=== PATIENT | male | born 1935 | race Caucasian/White ===

== ENCOUNTER 2019-11-15 14:57 | Outpatient (CLI) | payer MEDICARE, SELFPAY ==
--- NOTE | ~2019-11-15 | XR_ITS ---
EXAMINATION: XR chest 2V DATE: 11/15/2019 15:17 INDICATION: Cough. TECHNIQUE: Frontal and lateral views of the chest were obtained. COMPARISON: Chest 2 views 12/12/2012 FINDINGS: The chest demonstrates clear lungs without pneumonia, pleural effusion, or pneumothorax. Th e heart size is normal. IMPRESSION: 1. No acute cardiopulmonary disease. Reviewed, dictated and finalized at location A.
== END 2019-11-15 14:58 | disposition home or self-care (01) ==
PROVIDERS: PCP Family Medicine; Visit Provider Family Medicine
DX: R05 Cough (principal); R63.4 Abnormal weight loss
CPT/HCPCS: 71046

== ENCOUNTER 2020-02-10 01:00 | Outpatient (CLI) | payer MEDICARE, SELFPAY ==
[2020-02-10 19:18] LABS: SARS-CoV-2 RNA PCR Negative
== END 2020-02-10 01:01 | disposition home or self-care (01) ==
LOC: ANHCOVIDDT 01:00
PROVIDERS: PCP Family Medicine; Visit Provider Internal Medicine Gastroenterology
DX: Z01.812 Encounter for preprocedural laboratory examination (principal); Z20.828 Contact with and (suspected) exposure to other viral communicable diseases
CPT/HCPCS: 87635; C9803; U0003

== ENCOUNTER 2020-02-13 01:58 | Day surgery (SDC) | payer MEDICARE, SELFPAY ==
--- NOTE | 2020-02-06 10:06 | PC.NURSE ---
1000 pt does not have phone. during interview got cut off. pt did receive date and time of procedure and covid test date and time and wrote down waiting room phone #. will have to finish interview on arrival.
[2020-02-13 11:35] VITALS: BP 137/79; PULSE 75; RESP 18; TEMP 36.8; O2SAT 97
--- NOTE | 2020-02-13 11:39 | WPDANESEPPF ---
Anes - Initial Pre Proc Eval Procedure: Operation Date: 02/13/20 12:30 Proposed Procedures p Colonoscopy - Jone Arias DO Date/Time: 02/13/20 11:39 Surgeon: Jone Arias DO Pre Op Diagnosis: Weight Loss/ IBS with Constipation Patient Data Age: 84 Gender: M Height: Weight: 83.3 kg Last Vital Signs Temp 98.2 F 02/13/20 11:35 Pulse 75 02/13/20 11:35 Resp 18 02/13/20 11:35 BP 137/79 02/13/20 11:35 Pulse Ox 97 02/13/20 11:35 Allergies Allergy/AdvReac Type Severity Reaction Status Date / Time cephalexin Allergy Unknown Rash Verified 02/13/20 11:34 Home Medications Medication Instructions Recorded Confirmed Type calcium polycarbophil 625 mg tablet 1,250 mg PO BID 04/28/19 02/06/20 History cholecalciferol (vitamin D3) 50 2,000 unit PO DAILY 04/28/19 02/06/20 History mcg (2,000 unit) tablet gzhrnidd-fqv-figcn acid 300 1 tablet PO DAILY 04/28/19 02/06/20 History mcg-lycopene 600 mcg-lutein 300 mcg tablet enalapril maleate 20 mg tablet 20 mg PO DAILY #90 tablet 10/06/19 02/06/20 Rx Patient hx anesthesia problems: none Family hx anesthesia problems: none PMFSH Past Medical History Medical History (Updated 02/13/20 @ 10:41 by Ronen Hemphill MD) Benign colon polyp BPH without obstruction/lower urinary tract symptoms Chronic cough Constipation Essential (primary) hypertension Mixed hyperlipidemia Nocturia Weight loss, non-intentional Family History Family History (Updated 10/18/18 @ 10:37 by DOCTOR UNKNOWN) Father Patient's father is , Onset Age: 75 Acute myocardial infarction Family history of primary malignant neoplasm of liver, Onset Age: 75 Grandparent Cerebrovascular accident, Onset Age: 80 Mother Family history of malignant neoplasm of breast, Onset Age: 81 Other Family history of arthritis Social History Social History Smoking status: Never smoker Alcohol intake: never Anes - Eval Final PreProcedure Day of Procedure 02/13/20 11:39 Patient weight: normal Heart: regular rate and rhythm Lungs: clear to auscultation Airway: Mallampati scale class II Neurological: alert and oriented Last oral intake: >/= 8 hours ASA classification: II Emergent: no Anesthetic plan: proceed Anesthesia type and monitoring: general GIVS and standard monitoring Informed Consent: The patient's anesthetic plan and its attendant risks and benefits were discussed with the patient/family/POA. Questions were solicited and answers provided to the satisfaction of the patient/family/POA.
[2020-02-13] MEDS: LACTATED RINGERS 1,000 ML 150 ML IV CONT (12:05)
--- NOTE | 2020-02-13 13:41 | PM.IMHP ---
H&P: HPI History of Present Illness Date/Time: 02/13/20 13:41 Chief complaint: Weight Loss/ IBS with Constipation Narrative: Reason for visit colonoscopy. This very pleasant gentleman seen in consultation request of the primary physician. Impression: Here is a gentleman with history of some mild constipation and weight loss. We evaluate for underlying inflammatory neoplastic disease. He does have a history adenomatous colon polyps. Weight loss undetermined etiology. HTN. BPH. Recommendation: Colonoscopy. History: For pleasant gentleman is here for screening and surveillance colonoscopy. He has a history of adenomatous colon polyps. He has lost approximately 25 lb the last several months. Nausea, vomiting, hematemesis, dysphagia, odynophagia, indigestion, abdominal pain, hematochezia, melena acholic stools night. He had some constipation several weeks ago , but for the last 5-6 weeks his bowel habits have been normal. The patient is here for colonoscopy. Physical examination: General: very pleasant patient in no acute distress. HEENT: Head was normocephalic sclerae is clear mouth without masses neck was supple. Heart: Rate rhythm regular without S3 or S4. Lungs: CTA. Abdomen: Soft with no guarding or rigidity. Bowel sounds were active. Neurologic: Cranial nerves 2 through 12 intact. No focal defects. No clonus. Musculoskeletal system: Revealed no joint tenderness or swelling no muscle atrophy. Extremities: Reveal no significant edema. Skin: Warm and dry with normal turgor. Mental status: intact. Patient is alert and oriented. Review of Systems Review of Systems: All systems reviewed & are unremarkable except as noted in HPI and below PMFSH Past Medical History Medical History (Updated 02/13/20 @ 13:41 by Jone Arias DO) Adenomatous colon polyp BPH without obstruction/lower urinary tract symptoms Essential (primary) hypertension Mixed hyperlipidemia Family History Family History (Updated 10/18/18 @ 10:37 by DOCTOR UNKNOWN) Father Patient's father is , Onset Age: 75 Acute myocardial infarction Family history of primary malignant neoplasm of liver, Onset Age: 75 Grandparent Cerebrovascular accident, Onset Age: 80 Mother Family history of malignant neoplasm of breast, Onset Age: 81 Other Family history of arthritis Social History Social History Smoking status: Never smoker Alcohol intake: never Meds Home Medications and Allergies Home Medications Medication Instructions Recorded Confirmed Type calcium polycarbophil 625 mg tablet 1,250 mg PO BID 04/28/19 02/06/20 History cholecalciferol (vitamin D3) 50 2,000 unit PO DAILY 04/28/19 02/06/20 History mcg (2,000 unit) tablet aueaiful-tji-srutz acid 300 1 tablet PO DAILY 04/28/19 02/06/20 History mcg-lycopene 600 mcg-lutein 300 mcg tablet enalapril maleate 20 mg tablet 20 mg PO DAILY #90 tablet 10/06/19 02/06/20 Rx Allergies Allergy/AdvReac Type Severity Reaction Status Date / Time cephalexin Allergy Unknown Rash Verified 02/13/20 11:34 Vital Signs Vital Signs - 24 hr 02/13/20 11:35 Temperature 36.8 C Pulse Rate 75 Respiratory Rate 18 Blood Pressure 137/79 Pulse Oximetry 97
[2020-02-13 14:06] VITALS: BP 110/67; PULSE 66; RESP 18; O2SAT 97
[2020-02-13 14:16] VITALS: BP 116/72; PULSE 64; RESP 18; O2SAT 96
[2020-02-13 14:26] VITALS: BP 127/73; PULSE 69; RESP 16; O2SAT 99
== END 2020-02-13 14:47 | disposition home or self-care (01) ==
PROVIDERS: PCP Family Medicine; Visit Provider Internal Medicine Gastroenterology
PROC: 0DJD8ZZ Inspection of Lower Intestinal Tract, Via Natural or Artificial Opening Endoscopic (ICD-10-PCS; CPT 45378; principal; 2020-02-13 12:30)
DX: Z12.11 Encounter for screening for malignant neoplasm of colon (principal); D12.2 Benign neoplasm of ascending colon; K57.30 Diverticulosis of large intestine without perforation or abscess without bleeding; K64.8 Other hemorrhoids; K59.00 Constipation, unspecified; R63.4 Abnormal weight loss; Z68.24 Body mass index [BMI] 24.0-24.9, adult; I10 Essential (primary) hypertension; E78.2 Mixed hyperlipidemia; N40.0 Benign prostatic hyperplasia without lower urinary tract symptoms
CPT/HCPCS: 45380; 88305; J2704; J7120

== ENCOUNTER 2020-02-28 15:56 | Outpatient (CLI) | payer MEDICARE, SELFPAY ==
--- NOTE | ~2020-02-28 | CT_ITS ---
EXAMINATION: CT chest abdomen pelvis w con DATE: 02/28/2020 16:44 INDICATION: Weight loss TECHNIQUE: Computed tomography (CT) of the chest, abdomen, and pelvis was performed with 100 cc Omnip aque 350 intravenous contrast. Automated exposure control and iterative reconstruction technique were employed. Exam dose: 896.17 mGy-cm total exam DLP. COMPARISON: 11/15/2019 PA and lateral chest FINDINGS: CHEST CT: Right gynecomastia. Resection of the right lobe of the thyroid gland. 7 mm hypoenhancing lesion at the anteromedial aspect of the lower left thyroid lobe/isthmic junction. No hilar or mediastinal mass lesion or lymphadenopathy. There are calcified right and left hilar and subcarinal lymph nodes. Normal heart size. Coronary artery calcifications. No pericardial or pleural effusion. There are calcified right lower lobe pulmonary nodules.. There is a 6.5 mm irregular opacity in the r ight apical area; pulmonary malignancy is not excluded. Consider PET/CT scan for further imaging. Sma ll sliding hiatal hernia. ABDOMEN/PELVIS CT: The liver is unremarkable other than a couple of subcentimeter cysts. The gallbladder is present. No bile duct dilatation. Multiple calcified splenic granulomas, consistent with old granulomatous disease. No pancreatic mass lesion. There are some pancreatic calcifications consistent with chronic pancreati tis. No pancreatic duct dilatation. Normal morphology of the adrenal glands. There is an indeterminate exophytic 11 mm lesion along the lower pole of the right kidney with attenu ation of 35 Hounsfield units, likely a proteinaceous or hemorrhagic cyst. There is a similar 12 mm exophytic lesion of the lower pole of the left kidney with attenuation of 31 Hounsfield units.. There is a 2.5 cm lower pole left renal cyst with attenuation of 7 Hounsfield uni ts. There is a nonobstructing 5 mm lower pole left renal calculus. There is prominent prostate enlargement, impressing the base of the urinary bladder. There is moderat e diffuse bladder wall thickening likely secondary to outlet obstruction associated with the prostate enlargement. Normal caliber of the abdominal aorta. No intraperitoneal or retroperitoneal or pelvic mass lesion or adenopathy or ascites. Diverticulosis of the left and right colon; no CT evidence of diverticulitis. No bowel obstruction, b owel wall thickening, pneumatosis or intraperitoneal free air. Prominent multilevel degenerative disc disease of the lumbar and lumbosacral spine. 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 No suspicious osteolytic or osteoblastic lesions are noted. 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 IMPRESSION: 6.5 mm irregular right apical soft tissue mass density; pulmonary malignancy cannot be e xcluded. Consider PET/CT imaging. Old granulomatous disease Bilateral renal lesions, including a couple of lesions with attenuation in the 30-35 Hounsfield unit range, probably cysts Chronic pancreatitis Prominent prostate enlargement Diverticulosis of the left and right colon . Reviewed, dictated and finalized at Location A. Reviewed, dictated and finalized at location A. IMPRESSION: 6.5 mm irregular right apical soft tissue mass density; pulmonary malignancy cannot be excluded. Consider PET/CT imaging. Old granulomatous disease Bilateral renal lesions, including a couple of lesions with attenuation in the 30-35 Hounsfield unit range, probably cysts Chronic pancreatitis Prominent prostate enlargement Diverticulosis of the left and right colon .
[2020-02-28 16:27] LABS: Estimated Glomerular Filt Rate > 60
== END 2020-02-28 15:57 | disposition home or self-care (01) ==
PROVIDERS: PCP Family Medicine; Visit Provider Internal Medicine Gastroenterology
DX: R63.4 Abnormal weight loss (principal); K57.30 Diverticulosis of large intestine without perforation or abscess without bleeding; N40.0 Benign prostatic hyperplasia without lower urinary tract symptoms; K86.1 Other chronic pancreatitis; N28.89 Other specified disorders of kidney and ureter; R91.8 Other nonspecific abnormal finding of lung field
CPT/HCPCS: 71260; 74177; Q9967

== ENCOUNTER 2020-08-27 13:48 | Outpatient (CLI) | payer MEDICARE, SELFPAY ==
--- NOTE | ~2020-08-27 | CT_ITS ---
EXAMINATION: CT diagnostic chest wo con DATE: 08/27/2020 14:11 INDICATION: Follow-up pulmonary nodule TECHNIQUE: Computed tomography (CT) of the chest was performed without intravenous contrast. The dose -length product was 115.26 mGy-cm. Automated exposure control and iterative reconstruction technique were employed. COMPARISON: CT dated 02/28/2020 FINDINGS: There is a stable irregular shaped 9 mm nodule at the right apex, measured on coronal recon structions. There are calcified granulomas of the mediastinum, hilum and right lower lobe. No signifi cant pleural or pericardial effusion. Heart size is normal. No thoracic lymphadenopathy. There are sm all nodules of the minor fissure and major fissure which are unchanged, likely benign, largest measur ing 4 mm. There is a small 2 mm left upper thoracic nodule, likely benign, unchanged. Mild thoracic s pondylosis. There is a focal osteoblastic lesion of T9. IMPRESSION: 1. Stable bilateral pulmonary nodules, largest at the right lung apex measuring 9 mm, likely benign. Follow-up low dose CT chest in 12 months recommended. 2: Focal osteoblastic lesion of T9. Correlate for history of malignancy including prostate cancer. Ca nnot exclude metastatic disease. Consider correlation with bone scan. Reviewed, dictated and finalized at location A. [facility] IMPRESSION: 1. Stable bilateral pulmonary nodules, largest at the right lung apex measuring 9 mm, likely benign. Follow-up low dose CT chest in 12 months recommended. 2: Focal osteoblastic lesion of T9. Correlate for history of malignancy includi ng prostate cancer. Cannot exclude metastatic disease. Consider correlation wit h bone scan.
== END 2020-08-27 13:49 | disposition home or self-care (01) ==
PROVIDERS: Family Provider Family Medicine; PCP Family Medicine; Visit Provider Internal Medicine Critical Care Medicine
DX: R91.1 Solitary pulmonary nodule (principal); R91.8 Other nonspecific abnormal finding of lung field
CPT/HCPCS: 71250

== ENCOUNTER 2020-12-17 13:32 | Inpatient (IN) | payer MEDICARE, SELFPAY ==
[2020-12-17] VITALS (7 sets, daily range): BP systolic 102–142; BP diastolic 66–75; PULSE 81–106; RESP 14–20; TEMP 36–37.3; O2SAT 98–100; BMI 25.4
--- NOTE | ~2020-12-17 | XR_ITS ---
EXAMINATION: XR abdomen NG/feed tube insert INDICATION: Nasogastric tube placement TECHNIQUE: Portable AP KUB-NG at 1622 hours COMPARISON: None available FINDINGS: The tip of the nasogastric tube is in the stomach and the proximal side port is at the gallito roesophageal junction. Tube can be safely advanced 3 to 4 cm. The lung bases are clear. The bowel gas pattern is nonspecific. IMPRESSION: 1. Tip of the nasogastric tube in the stomach with proximal side port near the gastroesophageal junct ion. Tube can be safely advanced 3 to 4 cm which is recommended. Reviewed, dictated and finalized at location B. IMPRESSION: 1. Tip of the nasogastric tube in the stomach with proximal side port near the gastroesophageal junction. Tube can be safely advanced 3 to 4 cm which is recom mended.
[2020-12-17 14:09] LABS: Basophils Percent Auto 0.4 % (0.2-1.2); Eosinophils Percent Auto 0.8 % (0-4.4); Hematocrit 21.4 % (42.0-52.0); Hemoglobin 7.1 g/dL (14.0-18.0); Immature Granulocyte Absolute 0.02 K/mm3 (0.00-0.031); Immature Granulocyte Percent A 0.4 % (0-0.5); Lymphocytes Absolute Auto 1.47 K/mm3 (0.9-3.2); Lymphocytes Percent Auto 27.9 % (18.3-44.2); Mean Corpuscular HGB Conc 33.2 g/dl (32-36); Mean Corpuscular Hemoglobin 34.5 pg (26-34); Mean Corpuscular Volume 103.9 fl (80-100); Mean Platelet Volume 10.8 fl (7.4-10.4); Monocytes Absolute Auto 0.4 K/mm3 (0.1-0.6); Monocytes Percent Auto 6.8 % (2.6-8.5); Neutrophils Absolute Auto 3.4 K/mm3 (1.3-6.7); Neutrophils Percent Auto 63.7 % (45.5-73.1); Platelet Count Result 176 k/mm3 (150-375); Red Blood Count 2.06 M/mm3 (4.6-6.20); Red Cell Distribution Width 12.9 % (11.5-14.5); White Blood Count 5.3 K/mm3 (4.5-10.0)
[2020-12-17 14:23] LABS: Alanine Aminotransferase 13 U/L (4-50); Albumin Level 3.4 g/dL (3.5-5.1); Alkaline Phosphatase 41 U/L (38-126); Anion Gap 9 mmol/L (8-16); Aspartate Amino Transferase 24 U/L (17-59); Bilirubin,Total 0.2 mg/dL (0.2-1.3); Blood Urea Nitrogen 25 mg/dL (9-20); Carbon Dioxide 20 mmol/L (22-30); Chloride 112 mmol/L (98-107); Estimated CRCL calculation 54 ml/min; Estimated Glomerular Filt Rate > 60; Glucose 136 mg/dL (75-110); Potassium 4.1 mmol/L (3.4-5.0); Sodium 141 mmol/L (137-145)
[2020-12-17 14:30] LABS: INR 1.2; Prothrombin Time 15.7 Seconds (11.1-14.7)
[2020-12-17 14:31] LABS: Partial Thromboplastin Time 25.9 SECONDS (22.3-36.8)
[2020-12-17] MEDS: SODIUM CHLORIDE 0.9% IV 1,000 ML 999 ML IV CONT (15:27)
--- NOTE | 2020-12-17 15:39 | ED.GIBLEED ---
HPI - GI Bleed General Chief complaint: GI Bleed Stated complaint: Possible GI bleed Time Seen by Provider: 12/17/20 15:07 History of Present Illness HPI Narrative: Patient is an 85-year-old male who presents to the ER with GI bleeding. Reports on 12/13/2020 he began having bloody stools. They have been regular and frequency. He had 2 bloody stools today. Reports they are burgundy in appearance but definitely contain blood. Denies his habitual use of NSAIDs. He is on no blood thinning medication. Reports feeling lightheaded today but no loss of consciousness. No exertional fatigue. Patient has history of diverticulosis but has no history of GI bleed. Related Data Home Medications Medication Instructions Recorded Confirmed calcium polycarbophil 625 mg tablet 1,250 mg PO BID 04/28/19 11/12/20 cholecalciferol (vitamin D3) 50 2,000 unit PO DAILY 04/28/19 11/12/20 mcg (2,000 unit) tablet vgynnryw-rzj-wjlru acid 300 1 tablet PO DAILY 04/28/19 11/12/20 mcg-lycopene 600 mcg-lutein 300 mcg tablet Allergies Allergy/AdvReac Type Severity Reaction Status Date / Time cephalexin Allergy Unknown Rash Verified 12/17/20 15:06 Review of Systems Review of Systems: All systems reviewed & are unremarkable except as noted in HPI and below Constitutional: Constitutional: Denies chills, Denies fever(s) and Denies weakness Cardiovascular: Cardiovascular: Denies chest pain and Denies radiating jaw, neck or arm pain Respiratory: Respiratory: Denies cough and Denies dyspnea Gastrointestinal: Gastrointestinal: Denies abdominal pain, Denies nausea and Denies vomiting Comments: Hematochezia Neurologic: Denies syncope, Denies focal weakness and Denies numbness [facility] Past Medical History Medical History (Updated 12/17/20 @ 16:55 by Gavin Boyle MD) Adenomatous colon polyp BMI 26.0-26.9,adult BPH without obstruction/lower urinary tract symptoms Colon polyp, hyperplastic Diarrhea Essential (primary) hypertension Mixed hyperlipidemia Pulmonary nodule less than 1 cm in diameter with low risk for malignant neoplasm Vertigo Surgical History Surgical History (Updated 12/17/20 @ 16:15 by Gavin Boyle MD) H/O colonoscopy Family History Family History Father Patient's father is , Onset Age: 75 Acute myocardial infarction Family history of primary malignant neoplasm of liver, Onset Age: 75 Grandparent Cerebrovascular accident, Onset Age: 80 Mother Family history of malignant neoplasm of breast, Onset Age: 81 Other Family history of arthritis Social History Social History Smoking status: Never smoker Alcohol intake: never Substance use: never Exam Narrative: Exam Narrative: GENERAL: Well-appearing, well-nourished, and in no acute distress. HEAD: Normocephalic, atraumatic. EYES: PERRL and EOMI. ENT: Mucous membranes moist. CHEST: Clear to auscultation. No respiratory distress. HEART: Regular rate and rhythm. Normal peripheral pulses. ABDOMEN: Soft, nontender, nondistended. Grossly bloody stool that is dark in appearance on CHULA. EXTREMITIES: Normal range of motion. No edema. SKIN: Warm, dry, pale, no rash. NEURO: Alert and oriented x3. PSYCH: Normal mood and affect. Course Course Emergency Course: Admit to hospitalist service. GI consulted. Patient underwent gastric lavage by nursing staff which resulted in no evidence of active bleeding. Patient will receive GoLYTELY to be bowel prep for tomorrow. He will also be placed on a Protonix drip. We will trend his H&H's as he may require transfusion. Vital Signs Vital signs: Vital Signs Temperature 99.1 F 12/17/20 13:47 Pulse Rate 106 H 12/17/20 13:47 Respiratory Rate 14 12/17/20 13:47 Blood Pressure 102/73 12/17/20 13:47 Pulse Oximetry 98 12/17/20 13:47 Temperatu
[2020-12-17] MEDS: PANTOPRAZOLE SODIUM IV 40 MG VIAL 80 MG IV PUSH (15:57)
[2020-12-17] MEDS: PEG (High)/E-LYTE SOLN 4,000 ML BTL 4000 ML PO (16:45)
--- NOTE | 2020-12-17 16:45 | PC.NURSE ---
NG tube lavaged with 250 ml saline with return of clear fluid. No blood seen from tube.
[2020-12-17 17:02] LABS: Hematocrit 22.9 % (42.0-52.0); Hemoglobin 7.4 g/dL (14.0-18.0)
--- NOTE | 2020-12-17 17:33 | PC.NURSE ---
Tolerating go-lytely well. No bowel movement since starting.
--- NOTE | 2020-12-17 18:08 | ADMGEN ---
This patient, Dada Kerns, was admitted to Medical Room 341-01. Patient/family oriented to hospital policies and general routines including ID bracelet, bed and alarms, visiting hours, pain management, procedures, bathroom and other care routines, personal items, smoking policy, room service/diet, and visiting hours. Information on how to activate the Rapid Response Team has been discussed. Patient/Family are encouraged to report perceived risks to care and to ask questions if they do not understand what they are told or what they should do.
--- NOTE | 2020-12-17 21:00 | PM.IMHP ---
H&P: HPI History of Present Illness Date/Time: 12/17/20 21:00 Chief Complaint: Rectal bleeding. Narrative: This is a very pleasant 85-year-old male with hypertension and benign prostatic hyperplasia presented to the emergency department earlier today from home for evaluation of rectal bleeding. He has taken FiberCon a probiotic daily for about 6 years in typically has pretty good bowel movements most days. Sometime late last week he began having issues with constipation and at times having to strain to have a bowel movement and on he noticed some bright red blood on the toilet tissue after wiping. Since that time he has been passing quite a bit of bright red blood in the stool and notes that it seems to be dark maroon in color when wiping now. He does have a history of colon polyps and hemorrhoids with his last colonoscopy being a couple of years ago. He has no pain with that and specifically denies abdominal pain and rectal pain. No nausea or vomiting. Some lightheadedness but no syncope or near syncope. He very rarely will take an aspirin if he has a headache. No NSAID use. No epigastric pain or GERD symptoms. Weight has remained stable. Review of Systems Review of Systems: Narrative: Twelve systems were reviewed with pertinent positives and negatives as per HPI. The patient donated blood for many years however the last couple of times that he went to donate over a decade ago he was told that he was too low on iron. He has not been on any iron supplementation however. He does get up to urinate quite frequently at nighttime and was told he has an enlarged prostate, was previously on Flomax, but stop taking it as he saw no benefit. Abdomen is protuberant on exam but he reports that his chronic any does not think that he is retaining urine. No chest pain or shortness of breath. Has maturing cataracts. Except as documented, all other systems were reviewed and are negative. [facility] Past Medical History Medical History (Updated 12/17/20 @ 21:36 by Letty Campbell PA-C) Adenomatous colon polyp Benign prostatic hyperplasia Colon polyp, hyperplastic Essential (primary) hypertension Mixed hyperlipidemia Pulmonary nodule less than 1 cm in diameter with low risk for malignant neoplasm Vertigo Surgical History Surgical History (Updated 12/17/20 @ 21:32 by Letty Campbell PA-C) History of colonoscopy with polypectomy History of excision of pilonidal cyst History of orthopedic surgery ORIF right wrist fracture. History of partial thyroidectomy Benign right thyroid nodule. Family History Family History Father Patient's father is , Onset Age: 75 Acute myocardial infarction Family history of primary malignant neoplasm of liver, Onset Age: 75 Grandparent Cerebrovascular accident, Onset Age: 80 Mother Family history of malignant neoplasm of breast, Onset Age: 81 Other Family history of arthritis Social History Social History (Updated 12/17/20 @ 21:33 by Letty Campbell PA-C) Social History: The patient lives alone in his own home in [place]. He has never and has no children. No animals at home. Retired accounting. lifelong nonsmoker. No alcohol or illicit substance abuse. He designates his friend, Vineet Chávez, as his surrogate decision maker. Status code Sexual Orientation (if Verbalized by the Patient): . Meds Home Medications and Allergies Home Medications Medication Instructions Recorded Confirmed Type cholecalciferol (vitamin D3) 50 2,000 unit PO DAILY 04/28/19 12/17/20 History mcg (2,000 unit) tablet izofdmdi-cug-yhqhz acid 300 1 tablet PO DAILY 04/28/19 12/17/20 History mcg-lycopene 600 mcg-lutein 300 mcg tablet enalapril maleate 20 mg tablet 20 mg PO DAILY #90 tablet 10/08/20 12/17/20 Rx cholestyramine (with sugar) 4 gram 4 g PO BID PRN #15 ea 12/17/2012/17
[2020-12-17 22:16] LABS: Hematocrit 23.4 % (42.0-52.0); Hemoglobin 7.4 g/dL (14.0-18.0)
[2020-12-18] VITALS (20 sets, daily range): BP systolic 93–136; BP diastolic 49–96; PULSE 62–83; RESP 12–24; TEMP 35.7–36.6; O2SAT 93–100
[2020-12-18 06:11] LABS: Mean Corpuscular HGB Conc 33.2 g/dl (32-36); Mean Corpuscular Hemoglobin 34.2 pg (26-34); Mean Corpuscular Volume 103.3 fl (80-100); Mean Platelet Volume 10.7 fl (7.4-10.4); Platelet Count Result 146 k/mm3 (150-375); Red Blood Count 1.84 M/mm3 (4.6-6.20); White Blood Count 5.1 K/mm3 (4.5-10.0)
[2020-12-18 06:17] LABS: Anion Gap 5 mmol/L (8-16); Blood Urea Nitrogen 15 mg/dL (9-20); Calcium 8.2 mg/dL (8.4-10.2); Carbon Dioxide 25 mmol/L (22-30); Chloride 112 mmol/L (98-107); Estimated CRCL calculation 60 ml/min; Estimated Glomerular Filt Rate > 60; Glucose 113 mg/dL (75-110); Magnesium 1.9 mg/dL (1.6-2.3); Potassium 3.8 mmol/L (3.4-5.0); Sodium 142 mmol/L (137-145)
[2020-12-18 06:29] LABS: Hemoglobin 6.3 g/dL (14.0-18.0)
[2020-12-18 07:19] LABS: Folic Acid > 20.0 ng/mL (2.76->20)
[2020-12-18] MEDS: SODIUM CHLORIDE 0.9% IV 250 ML 30 ML IV CONT (08:35)
--- NOTE | 2020-12-18 09:25 | PC.NURSE ---
To dialysis via stretcher.
--- NOTE | 2020-12-18 09:28 | WPDGICN ---
Assessment and Plan Assessment and plan (1) GI bleed: Code(s): K92.2 - Gastrointestinal hemorrhage, unspecified Status: Acute Assessment and Plan: Patient admitted with GI bleeding. The etiology is somewhat unclear. He is been found to have diverticular disease on previous colonoscopy raising this is a likely possibility. Description of dark melenic stools suggest possible upper GI blood loss. Plan is to check both colonoscopy an EGD monitor hemoglobin till is stable in transfuse to a stable hemoglobin if necessary. Will follow with you during this hospital stay. (2) History of colon polyps: Code(s): Z86.010 - Personal history of colonic polyps Status: Acute Assessment and Plan: Patient has had colon polyps in several prior colonoscopies. At 1 point they were tubular adenomas. Several of been hyperplastic polyps. Plan is to continue surveillance colonoscopies at 3-5 year intervals in the future. (3) Anemia: Code(s): D64.9 - Anemia, unspecified Status: Acute Assessment and Plan: Patient has significant decline in hemoglobin baseline hemoglobin 14 in 2013 most recent hemoglobin 7.1 at time of admission. This appears to be a blood loss anemia related to current GI bleeding over last 4-5 days. GI endoscopy anticipated will monitor until we are certain this is stable. (4) Pulmonary nodule less than 1 cm in diameter with low risk for malignant neoplasm: Code(s): R91.1 - Solitary pulmonary nodule; Z91.89 - Other specified personal risk factors, not elsewhere classified Status: Acute GI Consult Note Consult date/time: 12/18/20 09:28 HPI: Dada Kerns is a 85 year old male Seen in evaluation at the request of the emergency room. Patient reports that he began to have bloody stools since Thursday. Over the last 4-5 days has notice bright red blood per rectum that is gradual become dark and melenic. Because of that he presented to the emergency room last evening. He denies any syncope denies any lightheadedness. He denies any significant abdominal pain. Past medical history is significant for colon polyps. He is known to have hemorrhoids. Last colonoscopy was March of 2020. By Dr. Arias. Review of Systems Review of Systems: All systems reviewed & are unremarkable except as noted in HPI and below PMFSH Past Medical History Medical History (Updated 12/18/20 @ 09:32 by Jone Barcenas MD) Adenomatous colon polyp Benign prostatic hyperplasia Colon polyp, hyperplastic Essential (primary) hypertension Mixed hyperlipidemia Pulmonary nodule less than 1 cm in diameter with low risk for malignant neoplasm Vertigo Surgical History Surgical History (Updated 12/17/20 @ 21:32 by Letty Campbell PA-C) History of colonoscopy with polypectomy History of excision of pilonidal cyst History of orthopedic surgery ORIF right wrist fracture. History of partial thyroidectomy Benign right thyroid nodule. Family History Family History Father Patient's father is , Onset Age: 75 Acute myocardial infarction Family history of primary malignant neoplasm of liver, Onset Age: 75 Grandparent Cerebrovascular accident, Onset Age: 80 Mother Family history of malignant neoplasm of breast, Onset Age: 81 Other Family history of arthritis Social History Social History (Updated 12/17/20 @ 21:33 by Letty Campbell PA-C) Social History: The patient lives alone in his own home in [place]. He has never and has no children. No animals at home. Retired accounting. lifelong nonsmoker. No alcohol or illicit substance abuse. He designates his friend, Vineet Chávez, as his surrogate decision maker. Status code Sexual Orientation (if Verbalized by the Patient): . Meds Home Medications and Allergies Home Medications Medication Instruct
[2020-12-18] MEDS: LACTATED RINGERS 1,000 ML 150 ML IV CONT (09:44)
--- NOTE | 2020-12-18 09:57 | WPDANESEPPF ---
Anes - Initial Pre Proc Eval Procedure: Operation Date: 12/18/20 10:00 Proposed Procedures p Esophagogastroduodenoscopy & Colonoscopy - Jone Barcenas MD Date/Time: 12/18/20 09:57 Surgeon: Candice Clark PA-C Pre Op Diagnosis: GI bleed Patient Data Age: 85 Gender: M Height: 1.83 m Weight: 85.2 kg Last Vital Signs Temp 96.8 F L 12/18/20 09:35 Pulse 72 12/18/20 09:35 Resp 22 H 12/18/20 09:35 BP 124/67 12/18/20 09:35 Pulse Ox 97 12/18/20 09:35 Allergies Allergy/AdvReac Type Severity Reaction Status Date / Time cephalexin Allergy Unknown Rash Verified 12/18/20 09:46 Home Medications Medication Instructions Recorded Confirmed Type cholecalciferol (vitamin D3) 50 2,000 unit PO DAILY 04/28/19 12/17/20 History mcg (2,000 unit) tablet qfzfyuph-dwf-ssotq acid 300 1 tablet PO DAILY 04/28/19 12/17/20 History mcg-lycopene 600 mcg-lutein 300 mcg tablet enalapril maleate 20 mg tablet 20 mg PO DAILY #90 tablet 10/08/20 12/17/20 Rx cholestyramine (with sugar) 4 gram 4 g PO BID PRN #15 ea 12/17/20 12/17/20 Rx powder for susp in a packet Laboratory Tests 12/17/20 12/17/20 12/17/20 13:54 13:54 13:55 WBC 5.3 K/mm3 K/mm3 (4.5-10.0) RBC 2.06 M/mm3 L M/mm3 (4.6-6.20) Hgb 7.1 g/dL L g/dL (14.0-18.0) Hct 21.4 % L % (42.0-52.0) MCV 103.9 fl H fl (80-100) MCH 34.5 pg H pg (26-34) MCHC 33.2 g/dl g/dl (32-36) RDW 12.9 % % (11.5-14.5) Plt Count 176 k/mm3 k/mm3 (150-375) MPV 10.8 fl H fl (7.4-10.4) Immature Gran % (Auto) 0.4 % % (0-0.5) Neut % (Auto) 63.7 % % (45.5-73.1) Lymph % (Auto) 27.9 % % (18.3-44.2) [place] % (Auto) 6.8 % % (2.6-8.5) Eos % (Auto) 0.8 % % (0-4.4) Baso % (Auto) 0.4 % % (0.2-1.2) Lymph # (Auto) 1.47 K/mm3 K/mm3 (0.9-3.2) [place] # (Auto) 0.4 K/mm3 K/mm3 (0.1-0.6) Eos # (Auto) 0.0 K/mm3 K/mm3 (0-0.3) Baso # (Auto) 0.0 K/mm3 K/mm3 (0.0-0.1) Abs Immat Gran (auto) 0.02 K/mm3 K/mm3 (0.00-0.031) Absolute Neuts (auto) 3.4 K/mm3 K/mm3 (1.3-6.7) Absolute Nucleated RBC 0.0 K/mm3 K/mm3 (0.0-0.012) Nucleated RBC % 0.0 % % (0.0-0.2) PT 15.7 Seconds H Seconds (11.1-14.7) INR 1.2 APTT 25.9 SECONDS SECONDS (22.3-36.8) Sodium Potassium Chloride Carbon Dioxide Anion Gap BUN Creatinine Estim Creat Clear Calc Estimated GFR Glucose Calcium Magnesium Iron TIBC % Saturation Ferritin Total Bilirubin AST ALT Alkaline Phosphatase Total Protein Albumin Vitamin B12 Folate TSH (Reflex) Blood Type A Positive Antibody Screen Negative Crossmatch See Detail 12/17/20 12/17/20 12/17/20 13:55 16:51 16:51 WBC RBC Hgb 7.4 g/dL L g/dL 7.4 g/dL L g/dL (14.0-18.0) (14.0-18.0) Hct 22.9 % L % 23.4 % L % (42.0-52.0) (42.0-52.0) MCV MCH MCHC RDW Plt Count MPV Immature Gran % (Auto) Neut % (Auto) Lymph % (Auto) [place] % (Auto) Eos % (Auto) Baso % (Auto) Lymph # (Auto) [place] # (Auto) Eos # (Auto) Baso # (Auto) Abs Immat Gran (auto) Absolute Neuts (auto) Absolute Nucleated RBC Nucleated RBC % PT INR APTT Sodium 141 mmol/L mmol/L
[2020-12-18] MEDS: BENZOCAINE (*SP) 60 ML SPRAY CAN (HURRICAINE) 1 SPRAY MUCOUS MEM (10:11)
[2020-12-18 10:16] LABS: Iron 99 ug/dL (49-181)
[2020-12-18 10:28] LABS: Percent Iron Saturation 49 % (20-50)
--- NOTE | 2020-12-18 11:25 | PC.NURSE ---
Returned from GI Lab via stretcher. Voiding without difficulty.
[2020-12-18] MEDS: OPTI-GEN TAB 1 TABLET PO (11:30)
[2020-12-18] MEDS: FAMOTIDINE 20 MG TABLET PO ×2 (11:30→20:45)
[2020-12-18] MEDS: ENALAPRIL MALEATE 10 MG TABLET 20 MG PO (11:30)
[2020-12-18 13:17] LABS: Hematocrit 23.9 % (42.0-52.0); Hemoglobin 7.7 g/dL (14.0-18.0)
--- NOTE | 2020-12-18 15:10 | PM.IMPN ---
Progress Note: A&P Assessment and Plan (1) GI bleed: Code(s): K92.2 - Gastrointestinal hemorrhage, unspecified Status: Acute Assessment and Plan: Presented with bright red bleeding per rectum that transitioned to melanotic stool. he underwent EGD and colonoscopy today by Dr. Barcenas. colonoscopy demonstrated diverticulosis without evidence of bleeding and internal hemorrhoids, both of which could be the likely cause for his GI bleed. High-fiber diet recommended no further episodes of bleeding since hospitalization (2) Acute blood loss anemia: Code(s): D62 - Acute posthemorrhagic anemia Status: Acute Assessment and Plan: Suspected, though baseline is unknown as he has not had labs since 2012. Hemoglobin was low at presentation at 7.1 and declined down to 6.3. He was transfused 1 unit pRBC. H&H stable following transfusion. Iron stores are adequate, B12 and folate wnl. Trend H&H q6h to ensure remaining stable. Transfuse as needed with goal Hgb 7.0 or greater (3) Essential (primary) hypertension: Code(s): I10 - Essential (primary) hypertension Status: Chronic Assessment and Plan: Blood pressures were reviewed and they are well controlled. Continue enalapril and monitor. (4) Benign prostatic hyperplasia: Code(s): N40.0 - Benign prostatic hyperplasia without lower urinary tract symptoms Status: Acute Assessment and Plan: Patient has frequent urination and nocturia however did not think Flomax was any help to him. No evidence of urinary retention on bladder scan and he is voiding without difficulty. Encouraged to follow-up with his primary care provider or urology given ongoing symptoms. (5) Duodenitis: Code(s): K29.80 - Duodenitis without bleeding Status: Acute Assessment and Plan: Mild duodenitis noted on EGD, unlikely to be cause of bleeding Pepcid bid initated Subjective Date/time seen: 12/18/20 15:10 Interval history: date of service: 12/18/2020 Dada Kerns is 85-year-old male with a history of BPH, hypertension, hyperlipidemia, and known pulmonary nodule who is seen in follow-up for acute GI bleed. He underwent EGD and colonoscopy today and tolerated the procedure well. He denies any acute pain. Has not had any further episodes of bleeding since he has been here. Denies dizziness, lightheadedness,, shortness of breath. No chest pain or palpitations. No nausea, vomiting, fever, or chills. He has been up and ambulating independently. He ate a good lunch. He has no other concerns at this time. He has been urinating without difficulty. Review of Systems Review of Systems: All systems reviewed & are unremarkable except as noted in HPI and below Exam Narrative: Exam Narrative: Mr. Kerns is A well-nourished, well-appearing 85-year-old male who is sitting up in bed. he appears comfortable and is in NARD. Neuro: awake, alert and oriented x4, speech clear, no focal neuro deficits noted HEENMT: normocephalic, atraumatic, EOMI, sclerae anicteric, moist oral mucosa Neck: supple, no lymphadenopathy Respiratory: clear to auscultation bilaterally, nonlabored breathing Cardio: regular rate, regular rhythm with S1-S2 Abdomen: nondistended, normoactive bowel sounds, soft, nontender to palpation Extremities: no edema, erythema, or tenderness to palpation, DP pulses 2+ bilaterally Skin: no rashes or lesions, warm and dry Psych: appropriate mood and affect, judgment and insight intact Objective Data Vital Signs Vital Signs: Vital Signs - 24 hr 12/17/20 17:42 12/17/20 18:43 12/17/20 18:50 Temperature 96.8 F L Pulse Rate 81 92 89 Respiratory Rate 20 16 Blood Pressure 121/70 142/75 H Pulse Oximetry 99 12/17/20 20:00 12/17/20 20:38 12/18/20 00:00 Temperature 97.0 F L Pulse Rate 91 82 82 Respiratory Rate 16 Blood Pressure 136/68 Pulse Oximetry 98
[2020-12-18 18:50] LABS: Hematocrit 23.8 % (42.0-52.0); Hemoglobin 7.6 g/dL (14.0-18.0)
[2020-12-19] VITALS (9 sets, daily range): BP systolic 97–118; BP diastolic 52–78; PULSE 64–87; RESP 16–18; TEMP 35.9–36.8; O2SAT 96–100
[2020-12-19 01:21] LABS: Hematocrit 21.5 % (42.0-52.0)
[2020-12-19 01:32] LABS: Hemoglobin 6.8 g/dL (14.0-18.0)
[2020-12-19] MEDS: SODIUM CHLORIDE 0.9% IV 250 ML 30 ML IV CONT (03:15)
--- NOTE | 2020-12-19 07:41 | WPDANESPN ---
Anes - Prog Note Post-Op Date/Time: 12/19/20 07:41 Cardiovascular status: normal Respiratory status: normal Airway patency: baseline Mental status: baseline Post-Op hydration status: normal Vital Signs: Last Vital Signs Temp 36.3 C L 12/19/20 06:30 Pulse 76 12/19/20 06:30 Resp 16 12/19/20 06:30 BP 116/68 12/19/20 06:30 Pulse Ox 98 12/19/20 06:30 Pain Score (VAS): 1 I/O: Intake & Output 12/18/20 12/18/20 12/19/20 15:59 23:59 07:59 Intake Total 650 600 550 Output Total 25 1200 Balance 650 575 -650 Laboratory Tests 12/19/20 01:09 12/18/20 05:43 12/17/20 12/18/20 12/18/20 13:54 05:43 13:06 Hgb 7.7 L Hct 23.9 L Iron 99 TIBC 202 L % Saturation 49 Ferritin 206.00 TSH (Reflex) 2.230 Blood Type A Positive Antibody Screen Negative Crossmatch See Detail 12/18/20 12/19/20 18:32 01:09 Hgb 7.6 L 6.8 L* Hct 23.8 L 21.5 L Iron TIBC % Saturation Ferritin TSH (Reflex) Blood Type Antibody Screen Crossmatch Post-procedural complaints: none Patient Feedback: Patient satisfied with anesthetic care.
[2020-12-19 08:35] LABS: Hemoglobin 8.6 g/dL (14.0-18.0); Mean Corpuscular HGB Conc 33.1 g/dl (32-36); Mean Corpuscular Hemoglobin 32.7 pg (26-34); Mean Corpuscular Volume 98.9 fl (80-100); Platelet Count Result 158 k/mm3 (150-375); Red Blood Count 2.63 M/mm3 (4.6-6.20); Red Cell Distribution Width 16.9 % (11.5-14.5); White Blood Count 4.7 K/mm3 (4.5-10.0)
[2020-12-19] MEDS: FAMOTIDINE 20 MG TABLET PO ×2 (08:46→20:29)
[2020-12-19] MEDS: OPTI-GEN TAB 1 TABLET PO (08:46)
[2020-12-19] MEDS: ENALAPRIL MALEATE 10 MG TABLET 20 MG PO (08:46)
[2020-12-19 08:47] LABS: Anion Gap 3 mmol/L (8-16); Blood Urea Nitrogen 11 mg/dL (9-20); Calcium 8.5 mg/dL (8.4-10.2); Carbon Dioxide 27 mmol/L (22-30); Chloride 111 mmol/L (98-107); Estimated CRCL calculation 60 ml/min; Estimated Glomerular Filt Rate > 60; Glucose 123 mg/dL (75-110); Sodium 141 mmol/L (137-145)
--- NOTE | 2020-12-19 09:18 | WPDGIPROGNO ---
Progress Note: A&P Assessment and Plan (1) Diverticulosis: Code(s): K57.90 - Diverticulosis of intestine, part unspecified, without perforation or abscess without bleeding Status: Acute Assessment and Plan: Recent GI bleeding appears to be from diverticular disease. This appears to have abated at this time. Plan for high-fiber diet. Anticipate discharge today. Follow-up CBC after discharge to ensure hemoglobin remains stable. (2) Acute blood loss anemia: Code(s): D62 - Acute posthemorrhagic anemia Status: Acute Assessment and Plan: Patient required additional transfusion last night. Likely from equilibration. Plan for follow-up CBC after discharge in 1 week. (3) Duodenitis: Code(s): K29.80 - Duodenitis without bleeding Status: Acute Assessment and Plan: Mild duodenitis noted by endoscopy yesterday. Likely incidental. Would keep patient on Pepcid or Protonix for 2 weeks. (4) History of colon polyps: Code(s): Z86.010 - Personal history of colonic polyps Status: Acute Assessment and Plan: Patient has a distant history of colon polyps. no polyps identified by endoscopy yesterday. Given his advanced age would likely only do follow-up colonoscopy if symptoms develop. Subjective Date/time seen: 12/19/20 09:18 Patient comfortable this morning. No additional bleeding noted. He has tolerated diet without difficulty. He denies abdominal pain. He did receive additional blood transfusion last evening. Review of Systems Review of Systems: All systems reviewed & are unremarkable except as noted in HPI and below Exam Narrative: Exam Narrative: Physical exam reveals patient be alert. Vital signs stable. Lungs are clear. Heart without murmur. Abdomen bowel sounds present soft nontender with no organomegaly. Objective Data Vital Signs Vital Signs: Vital Signs - 24 hr 12/18/20 09:35 12/18/20 10:35 12/18/20 10:40 Temperature 96.8 F L 97.5 F L Pulse Rate 72 72 73 Respiratory Rate 22 H 18 20 Blood Pressure 124/67 117/59 L 116/52 L Pulse Oximetry 97 96 97 12/18/20 10:50 12/18/20 11:00 12/18/20 11:10 Temperature 97.9 F Pulse Rate 69 74 73 Respiratory Rate 18 20 21 H Blood Pressure 114/49 L 124/56 L 136/65 Pulse Oximetry 96 100 99 12/18/20 11:30 12/18/20 11:35 12/18/20 12:00 Temperature 96.5 F L Pulse Rate 64 68 Respiratory Rate 16 12 Blood Pressure 116/96 H Pulse Oximetry 100 99 12/18/20 12:35 12/18/20 14:00 12/18/20 16:00 Temperature 96.3 F L 96.4 F L Pulse Rate 82 78 62 Respiratory Rate 12 20 Blood Pressure 112/60 104/55 L Pulse Oximetry 100 98 12/18/20 22:00 12/19/20 03:15 12/19/20 03:30 Temperature 96.3 F L 96.8 F L 97.5 F L Pulse Rate 69 69 64 Respiratory Rate 20 16 16 Blood Pressure 93/53 L 101/53 L 115/67 Pulse Oximetry 93 100 100 12/19/20 04:30 12/19/20 05:30 12/19/20 06:00 Temperature 96.7 F L 96.8 F L 98.2 F Pulse Rate 68 70 80 Respiratory Rate 16 18 16 Blood Pressure 97/52 L 112/56 L 116/78 Pulse Oximetry 100 100 100 12/19/20 06:30 Temperature 97.4 F L Pulse Rate 76 Respiratory Rate 16 Blood Pressure 116/68 Pulse Oximetry 98 Intake/Output Intake/Output: Intake & Output 12/16/20 12/17/20 12/18/20 12/19/20 23:59 23:59 23:59 23:59 Intake Total 1000 1750 790 Output Total 650 1525 1200 Balance 350 225 -410 Meds/Results Medications: Active Medications Generic Name Dose Route Start Last Admin Trade Name Karen PRN Reason Stop Dose Admin Acetaminophen 650 mg 12/17/20 21:39 Acetaminophen 325 Mg Tablet PO Q6H PRN Mild Pain (1-3) or Fever Enalapril Maleate 20 mg 12/18/20 09:00 12/19/20 08:46 Enalapril Maleate 10 Mg Tablet PO 20 mg DAILY MERISSA Administration Famotidine 20 mg 12/18/20 10:45 12/19/20 08:46 Famotidine 20 Mg Tablet PO 20 mg Q12HR MERISSA Administration Sodium Chloride 250 mls @ 30 mls/hr 12/19/20 01:38
[2020-12-19 12:24] LABS: Hematocrit 27.5 % (42.0-52.0); Hemoglobin 8.9 g/dL (14.0-18.0)
--- NOTE | 2020-12-19 16:28 | PM.IMPN ---
Progress Note: A&P Assessment and Plan (1) GI bleed: Code(s): K92.2 - Gastrointestinal hemorrhage, unspecified Status: Acute Assessment and Plan: Presented with bright red bleeding per rectum that transitioned to melanotic stool. he underwent EGD and colonoscopy on 12/[address] Barcenas. Colonoscopy demonstrated diverticulosis without evidence of bleeding and internal hemorrhoids, both of which could be the likely cause for his GI bleed. High-fiber diet recommended no further episodes of bleeding since hospitalization (2) Acute blood loss anemia: Code(s): D62 - Acute posthemorrhagic anemia Status: Acute Assessment and Plan: Hemoglobin was low at presentation at 7.1 and declined down to 6.3. He was transfused 1 unit pRBC. hemoglobin declined again early this morning to 6.8 and he was transfused another unit. Hgb 8.6 following transfusion. Trend H&H q6h to ensure remaining stable. Transfuse as needed with goal Hgb 7.0 or greater (3) Essential (primary) hypertension: Code(s): I10 - Essential (primary) hypertension Status: Chronic Assessment and Plan: Blood pressures were reviewed and they are well controlled. last BP 116/68 Continue enalapril and monitor. (4) Benign prostatic hyperplasia: Code(s): N40.0 - Benign prostatic hyperplasia without lower urinary tract symptoms Status: Acute Assessment and Plan: Patient has frequent urination and nocturia however did not think Flomax was any help to him. No evidence of urinary retention on bladder scan and he is voiding without difficulty. Encouraged to follow-up with his primary care provider or urology given ongoing symptoms. (5) Duodenitis: Code(s): K29.80 - Duodenitis without bleeding Status: Acute Assessment and Plan: Mild duodenitis noted on EGD, unlikely to be cause of bleeding Pepcid BID initated Subjective Date/time seen: 12/19/20 16:28 Interval history: date of service: 12/19/2020 Dada Kerns is 85-year-old male with a history of BPH, hypertension, hyperlipidemia, and known pulmonary nodule who is seen in follow-up for acute GI bleed. he is feeling well today. He has no complaints at this time. Denies dizziness, lightheadedness, shortness of breath, or palpitations. No chest pain or palpitations. He had a loose stool today without any bleeding. No melena or hematochezia. He is urinating without difficulty. His appetite is good and he is enjoying the hospital food very much. Review of Systems Review of Systems: All systems reviewed & are unremarkable except as noted in HPI and below Exam Narrative: Exam Narrative: Mr. Kerns is a well-nourished, well-appearing 85-year-old male who is sitting in a chair by the bedside. he appears comfortable and is in NARD. Neuro: awake, alert and oriented x4, speech clear, no focal neuro deficits noted HEENMT: normocephalic, atraumatic, EOMI, sclerae anicteric, moist oral mucosa Neck: supple, no lymphadenopathy Respiratory: clear to auscultation bilaterally, nonlabored breathing Cardio: regular rate, regular rhythm with S1-S2 Abdomen: nondistended, normoactive bowel sounds, soft, nontender to palpation Extremities: no edema, erythema, or tenderness to palpation, DP pulses 2+ bilaterally Skin: no rashes or lesions, warm and dry Psych: appropriate mood and affect, judgment and insight intact Objective Data Vital Signs Vital Signs: Vital Signs - 24 hr 12/18/20 22:00 12/19/20 03:15 12/19/20 03:30 Temperature 96.3 F L 96.8 F L 97.5 F L Pulse Rate 69 69 64 Respiratory Rate 20 16 16 Blood Pressure 93/53 L 101/53 L 115/67 Pulse Oximetry 93 100 100 12/19/20 04:30 12/19/20 05:30 12/19/20 06:00 Temperature 96.7 F L 96.8 F L 98.2 F Pulse Rate 68 70 80 Respiratory Rate 16 18 16 Blood Pressure 97/52 L 112/56 L 116/78 Pulse Oximetry 100 100 100 12/19/20 06:30 12/19/20 10:54
[2020-12-19 19:38] LABS: Hematocrit 27.8 % (42.0-52.0); Hemoglobin 9.1 g/dL (14.0-18.0)
[2020-12-20 01:23] LABS: Hematocrit 23.9 % (42.0-52.0); Hemoglobin 7.8 g/dL (14.0-18.0)
[2020-12-20 05:31] VITALS: BP 106/58; PULSE 69; RESP 18; TEMP 35.6; O2SAT 99
[2020-12-20 06:29] LABS: Hematocrit 25.6 % (42.0-52.0); Hemoglobin 8.2 g/dL (14.0-18.0)
[2020-12-20] MEDS: ENALAPRIL MALEATE 10 MG TABLET 20 MG PO (08:07)
[2020-12-20] MEDS: OPTI-GEN TAB 1 TABLET PO (08:08)
[2020-12-20] MEDS: FAMOTIDINE 20 MG TABLET PO (08:08)
--- NOTE | 2020-12-20 10:39 | PM.DS ---
DS: Admitting Diagnosis Admitting Diagnosis Admitting Diagnosis: GI bleed DS: Discharge Diagnosis Discharge Diagnosis (1) GI bleed: Code(s): K92.2 - Gastrointestinal hemorrhage, unspecified Status: Acute Assessment and Plan: Date of Admission 12/17/20 Date of Discharge 12/20/20 Mr. Kerns is a pleasant 85yo M with history of HTN who presented to the ED for evaluation of blood in stool. He described he had some bright red blood per rectum that transitioned to melanotic stool, onset a few days prior to admission. He was evaluated by GI and underwent EGD/colonoscopy by Dr Barcenas on 12/18/20 which demonstrated Diverticulosis without evidence of bleeding and internal hemorrhoids, both of which could be the likely cause for GI bleeding. He was also found to have some mild duodenitis on EGD and was started on PPI. High-fiber diet is recommended. He had no further episodes of bleeding since his hospitalization. He had Hgb 6.3 on 12/18/2020 and received 1 unit packed RBC. Hgb trended up in the high sevens, then declined again to 6.8 on 12/19 at which time he received another 1 unit packed RBC. Subsequently his Hgb remained stable and was 8.2 on day of discharge. He was ambulating without dizziness or lightheadedness. He is hemodynamically stable for discharge on 12/20/2020 with instructions to follow-up with PCP and monitor for further bleeding. (2) Acute blood loss anemia: Code(s): D62 - Acute posthemorrhagic anemia Status: Acute Assessment and Plan: Hgb 6.3 on 12/18/20 - received 1 unit packed RBC transfusion. Hgb 6.8 on 12/19/20 - received 1 unit packed RBC transfusion. Hgb low but stable 8.2 day of discharge. Related to GI bleeding as above. Repeat CBC in 1 week and follow up with PCP. (3) Essential (primary) hypertension: Code(s): I10 - Essential (primary) hypertension Status: Chronic Assessment and Plan: Blood pressure stable maintained on his home HEAVEN-inhibitor . (4) Benign prostatic hyperplasia: Code(s): N40.0 - Benign prostatic hyperplasia without lower urinary tract symptoms Status: Acute Assessment and Plan: Patient has frequent urination and nocturia however did not think Flomax was any help to him. No evidence of urinary retention on bladder scan and he is voiding without difficulty. Encouraged to follow-up with his primary care provider or urology given ongoing symptoms. (5) Duodenitis: Code(s): K29.80 - Duodenitis without bleeding Status: Acute Assessment and Plan: Mild duodenitis noted on EGD, unlikely to be cause of bleeding Pepcid BID initiated DS: Summary Hospital Course Hospital Course: See above Time Spent with Patient Time attestation: Total time spent providing and/or coordinating discharge services: 35 minutes Exam Narrative: Exam Narrative: Mr. Kerns is a well-nourished, well-appearing 85-year-old male who is sitting in a chair by the bedside. he appears comfortable and is in NARD. Neuro: awake, alert and oriented x4, speech clear, no focal neuro deficits noted HEENMT: normocephalic, atraumatic, EOMI, sclerae anicteric, moist oral mucosa Neck: supple, no lymphadenopathy Respiratory: clear to auscultation bilaterally, nonlabored breathing Cardio: regular rate, regular rhythm with S1-S2 Abdomen: nondistended, normoactive bowel sounds, soft, nontender to palpation Extremities: no edema, erythema, or tenderness to palpation, DP pulses 2+ bilaterally Skin: no rashes or lesions, warm and dry Psych: appropriate mood and affect, judgment and insight intact DS: Data Data Completed and Pending Labs on day of discharge: Labs from last 24 hours 12/20/20 12/20/20 12/19/20 05:35 01:10 18:39 Hgb
--- NOTE | 2020-12-20 10:42 | WPDGIPROGNO ---
Progress Note: A&P Assessment and Plan (1) Duodenitis: Code(s): K29.80 - Duodenitis without bleeding Status: Acute Assessment and Plan: duodenitis by EGD. This is nonspecific. But he may benefit from a brief course of Pepcid. Hopefully discharge today. He is tolerating diet with no difficulty (2) Diverticulosis: Code(s): K57.90 - Diverticulosis of intestine, part unspecified, without perforation or abscess without bleeding Status: Acute Assessment and Plan: sigmoid diverticulosis identified by colonoscopy. I suspect this was the source of recent bleeding. Bleeding has stopped no actively at the time of endoscopy. Would recommend conservative therapy. High-fiber diet. Perhaps follow-up CBC 1 week after discharge. (3) History of colon polyps: Code(s): Z86.010 - Personal history of colonic polyps Status: Acute Assessment and Plan: Patient has a distant history of colon polyps. We may wish to consider follow-up colonoscopy in 5 years. However because of his advanced age would defer this to primary care service at that time period (4) Anemia: Code(s): D64.9 - Anemia, unspecified Status: Acute Assessment and Plan: patient with anemia likely from GI bleeding. Hemoglobin 8.2 today appears stable. He did receive transfusion earlier in hospital course. Anticipate discharge. Follow-up CBC in 1 week advised. Subjective Date/time seen: 12/20/20 10:42 Patient feels good this morning. No additional bleeding. Tolerating diet. Denies abdominal pain. Review of Systems Review of Systems: All systems reviewed & are unremarkable except as noted in HPI and below Exam Narrative: Exam Narrative: Physical exam reveals Vital Signs to be stable. HEENT exam reveals no icterus. Lungs are clear. Heart without murmur. Abdomen soft and nontender Objective Data Vital Signs Vital Signs: Vital Signs - 24 hr 12/19/20 10:54 12/19/20 14:00 12/19/20 20:08 Temperature 97.1 F L 97.2 F L Pulse Rate 87 76 Respiratory Rate 16 18 Blood Pressure 118/67 109/66 Pulse Oximetry 96 99 96 12/20/20 05:31 Temperature 96.1 F L Pulse Rate 69 Respiratory Rate 18 Blood Pressure 106/58 L Pulse Oximetry 99 Intake/Output Intake/Output: Intake & Output 12/17/20 12/18/20 12/19/20 07/01/21 23:59 23:59 23:59 23:59 Intake Total 1000 1750 1570 680 Output Total 650 1525 1200 900 Balance 350 225 370 -220 Meds/Results Medications: Active Medications Generic Name Dose Route Start Last Admin Trade Name Frevenus PRN Reason Stop Dose Admin Acetaminophen 650 mg 12/17/20 21:39 Acetaminophen 325 Mg Tablet PO Q6H PRN Mild Pain (1-3) or Fever Enalapril Maleate 20 mg 12/18/20 09:00 12/20/20 08:07 Enalapril Maleate 10 Mg Tablet PO 20 mg DAILY MERISSA Administration Famotidine 20 mg 12/18/20 10:45 12/20/20 08:08 Famotidine 20 Mg Tablet PO 20 mg Q12HR MERISSA Administration Multivitamins/Minerals 1 tablet 12/18/20 09:00 12/20/20 08:08 Opti-Gen Tab PO 1 tablet DAILY MERISSA Administration Ondansetron HCl 4 mg 12/17/20 16:35 Ondansetron Inj 4 Mg/2 Ml Vial IV PUSH Q4H PRN Nausea Radiology Results: ITS Impressions Abdomen X-Ray 12/17/20 16:24 IMPRESSION: 1. Tip of the nasogastric tube in the stomach with proximal side port near the gastroesophageal junction. Tube can be safely advanced 3 to 4 cm which is recommended. Labs Labs: Laboratory Results - last 24 hr 12/19/20 12/19/20 12/20/20 12:16 18:39 01:10 Hgb 8.9 L 9.1 L 7.8 L Hct 27.5 L 27.8 L 23.9 L 12/20/20 05:35 Hgb 8.2 L Hct 25.6 L
== END 2020-12-20 13:08 | disposition home or self-care (01) | DRG 393 ==
LOC: ANHED 16:55 → ANH3MED 17:26
PROVIDERS: Internal Medicine Gastroenterology; Physician Assistant; Admitting Provider Emergency Medicine; Emergency Provider Emergency Medicine; PCP Family Medicine; Visit Provider Physician Assistant
PROC: 0DJ08ZZ Inspection of Upper Intestinal Tract, Via Natural or Artificial Opening Endoscopic (ICD-10-PCS; CPT 43235; principal; 2020-12-18 10:00)
DX: K64.8 Other hemorrhoids (principal); K57.31 Diverticulosis of large intestine without perforation or abscess with bleeding; D62 Acute posthemorrhagic anemia; K29.80 Duodenitis without bleeding; I10 Essential (primary) hypertension; E78.2 Mixed hyperlipidemia; R91.1 Solitary pulmonary nodule; D53.9 Nutritional anemia, unspecified; N40.1 Benign prostatic hyperplasia with lower urinary tract symptoms; R35.0 Frequency of micturition; R35.1 Nocturia; Z86.010 Personal history of colon polyps
CPT/HCPCS: 36415; 36430; 80048; 80053; 82607; 82728; 82746; 83540; 83550; 83735; 84443; 85014; 85018; 85025; 85027; 85610; 85730; 86850; 86900; 86901; 86920; 87081; 96361; 96365; 96366; 99285; A9270; C9113; G0378; J2704; J7030; J7050; J7060; J7120; P9016

== ENCOUNTER 2021-02-27 11:04 | Outpatient (CLI) | payer MEDICARE, SELFPAY ==
--- NOTE | ~2021-02-27 | CT_ITS ---
EXAMINATION: CT diagnostic chest wo con DATE: 02/27/2021 11:28 INDICATION: Solitary pulmonary nodule TECHNIQUE: Computed tomography (CT) of the chest was performed without intravenous contrast. The dose -length product (DLP) was 106.29 mGy-cm. Automated exposure control and iterative reconstruction tech DEXMAque were employed. COMPARISON: 08/27/2020, 02/28/2020 FINDINGS: A 9 mm nodule of the right lung apex is stable. There are multiple smaller, stable pulmonar y nodules. No new pulmonary nodule is identified. The lungs are free of acute opacities. There is no pleural effusion or pneumothorax. Calcified pulmonary nodules are consistent with old granulomatous d isease. 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 There is bilateral gynecomastia, right greater than left. T he heart size is normal. There is calcified coronary artery atherosclerosis. No pathologically enlarg ed thoracic lymph nodes are identified. The ascending aorta is dilated. There is severe upper thoraci c spondylosis. IMPRESSION: 1. Stable pulmonary nodules measuring up to 9 mm in the right lung apex probably benign. Follow-up CT in 6-12 months is recommended. Reviewed, dictated and finalized at location B. IMPRESSION: 1. Stable pulmonary nodules measuring up to 9 mm in the right lung apex probabl y benign. Follow-up CT in 6-12 months is recommended.
== END 2021-02-27 11:05 | disposition home or self-care (01) ==
LOC: ANHIMG 11:08
PROVIDERS: PCP Family Medicine; Visit Provider Internal Medicine Critical Care Medicine
DX: R91.8 Other nonspecific abnormal finding of lung field (principal); Z91.89 Other specified personal risk factors, not elsewhere classified
CPT/HCPCS: 71250

== ENCOUNTER 2022-02-27 12:48 | Outpatient (CLI) | payer MEDICARE, SELFPAY ==
--- NOTE | ~2022-02-27 | CT_ITS ---
EXAMINATION:CT diagnostic chest wo con DATE: 02/27/2022 13:07 INDICATION: Solitary pulmonary nodule. TECHNIQUE: Computed tomography (CT) of the chest was performed without intravenous contrast. Automate d exposure control and iterative reconstruction technique were employed. The dose-length product (DLP ) was 114.52 mGy-cm. COMPARISON: Chest CT 02/27/2021, 02/28/20 FINDINGS: There is a 10 mm nodule in right upper lobe, stable from 02/28/20. Calcified bilateral lung n odules and calcified hilar lymph nodes are consistent with old granulomatous disease. No pleural effu iqra. The heart size is normal. No pericardial effusion. There is bilateral gynecomastia. Calcificati ons in the spleen are consistent with old granulomatous disease. There is severe thoracic and lumbar spondylosis. IMPRESSION: 1. Chronic lung nodule, likely benign. Reviewed, dictated and finalized at location A.
== END 2022-02-27 12:49 | disposition home or self-care (01) ==
LOC: ANHIMG 12:51
PROVIDERS: PCP Family Medicine; Visit Provider Physician Assistant
DX: R91.1 Solitary pulmonary nodule (principal)
CPT/HCPCS: 71250

== ENCOUNTER 2023-06-02 15:00 | Outpatient (CLI) | payer MEDICARE, SELFPAY ==
[2023-06-02 16:13] LABS: Basophils Percent Auto 0.6 % (0.2-1.2); Eosinophils Absolute Auto 0.1 K/mm3 (0-0.3); Hematocrit 35.8 % (42.0-52.0); Hemoglobin 11.4 g/dL (14.0-18.0); Immature Granulocyte Absolute 0.03 K/mm3 (0.00-0.031); Immature Granulocyte Percent A 0.5 % (0-0.5); Lymphocytes Absolute Auto 0.71 K/mm3 (0.9-3.2); Lymphocytes Percent Auto 11.3 % (18.3-44.2); Mean Corpuscular HGB Conc 31.8 g/dl (32-36); Mean Corpuscular Volume 103.8 fl (80-100); Mean Platelet Volume 12.2 fl (7.4-10.4); Monocytes Absolute Auto 0.7 K/mm3 (0.1-0.6); Neutrophils Absolute Auto 4.8 K/mm3 (1.3-6.7); Neutrophils Percent Auto 75.6 % (45.5-73.1); Platelet Count Result 174 k/mm3 (150-375); Red Blood Count 3.45 M/mm3 (4.6-6.20); White Blood Count 6.3 K/mm3 (4.5-10.0)
[2023-06-02 16:27] LABS: Alanine Aminotransferase 107 U/L (6-50); Albumin Level 3.4 g/dL (3.5-5.1); Alkaline Phosphatase 395 U/L (38-126); Amylase 74 U/L (30-110); Aspartate Amino Transferase 106 U/L (17-59); Bilirubin Direct 6.4 mg/dL (0-0.3); Bilirubin,Total 12.1 mg/dL (0.2-1.3); Lipase 134 U/L (23-300)
[2023-06-02 16:31] LABS: Appearance Urine Clear (Clear); Bacteria Urine None Seen /hpf; Bilirubin Urine 3+ (Negative); Blood Urine Negative (Negative); Color Urine Dark Yellow (Yellow); Glucose Urine UA Negative (Negative); Ketones Urine Negative (Negative); Leukocyte Esterase Ur Trace LEU/UL (NEGATIVE); Nitrate Urine Negative (Negative); Non Pathogenic Casts 0-2; Protein Urine Trace mg/dL (Negative); RBC Urine 0-2 /hpf (0-2); Squamous Epithelial Cell Urine None seen /hpf (Few); Urobilinogen Urine 0.2 mg/dL (<2.0); WBC Urine 0-5 /hpf (0-3); pH Urine 5.5 (5.0-9.0)
[2023-06-02 16:45] LABS: Add Urine Microscopic? YES
== END 2023-06-02 15:01 | disposition home or self-care (01) ==
LOC: ANHLAB 15:08
PROVIDERS: PCP Family Medicine; Visit Provider Family Medicine
DX: D64.9 Anemia, unspecified (principal); R10.9 Unspecified abdominal pain
CPT/HCPCS: 36415; 80076; 81001; 82150; 83690; 85025; 87086

== ENCOUNTER 2023-06-03 10:58 | Outpatient (CLI) | payer MEDICARE, SELFPAY ==
[2023-06-03 13:20] LABS: Hepatitis B Surface Antigen Negative (Negative)
[2023-06-03 13:27] LABS: HAV RESULT Negative (Negative); Hepatitis B Core IgM Result Negative (Negative)
[2023-06-03 13:38] LABS: Hepatitis C Virus Antibody Negative (Negative)
== END 2023-06-03 10:59 | disposition home or self-care (01) ==
LOC: ANHGOSHLAB 10:59
PROVIDERS: Visit Provider Family Medicine
DX: B17.9 Acute viral hepatitis, unspecified (principal)
CPT/HCPCS: 36415; 80074

== ENCOUNTER → 2023-06-03 11:08 | Outpatient (CLI) | payer MEDICARE, SELFPAY ==
--- NOTE | ~2023-06-03 | US_ITS ---
Abdominal Sonogram: Real-time sonographic imaging of the abdomen was performed. Clinical History: Liver inflammation Findings: The liver appears somewhat heterogeneous, with several scattered mildly hyperechoic region s. Masses are not excluded versus heterogeneous parenchyma. Liver measures 18.5 cm in length. Main po rtal vein demonstrates normal direction of flow. The spleen is normal in size without evidence of foc al lesion. The gallbladder is well distended, and and contains gallbladder sludge and stones. No gal lbladder wall thickening. The common bile duct measures 14 mm. The visualized pancreas, aorta, and I VC are unremarkable. The right kidney measures 11.2 cm in length and the left kidney measures 12.5 c m. There is no hydronephrosis or renal calculus. Left renal cyst noted. Impression: Heterogeneous liver, with suggestion of multiple subtle hyperechoic masses. Metastatic disease or mul tiple hemangiomas are considerations, or possibly heterogeneous parenchyma. Pre and postcontrast hepa tic MR recommended for most sensitive evaluation for hepatic lesions. Cholelithiasis and gallbladder sludge. Reviewed, dictated and finalized at location M. UME DRAPER Impression: Heterogeneous liver, with suggestion of multiple subtle hyperechoic masses. Met astatic disease or multiple hemangiomas are considerations, or possibly heterog eneous parenchyma. Pre and postcontrast hepatic MR recommended for most sensiti ve evaluation for hepatic lesions. Cholelithiasis and gallbladder sludge.
== END ==
PROVIDERS: PCP Family Medicine; Visit Provider Family Medicine
DX: K80.20 Calculus of gallbladder without cholecystitis without obstruction (principal); K75.9 Inflammatory liver disease, unspecified
CPT/HCPCS: 76700

== ENCOUNTER 2023-06-13 16:22 | Inpatient (IN) | payer MEDICARE, MEDICAID, SELFPAY ==
[2023-06-13] VITALS (19 sets, daily range): BP systolic 86–112; BP diastolic 49–74; PULSE 81–97; RESP 13–25; TEMP 36.9; O2SAT 92–100; BMI 25.1
--- NOTE | ~2023-06-13 | MR_ITS ---
EXAMINATION: MR MRCP wo/w con/w 3D wo ind DATE: 06/14/2023 12:12 INDICATION: Jaundice. Abnormal liver ultrasound. TECHNIQUE: Magnetic resonance imaging (MRI) of the abdomen was performed without and with 16 mL Multi Eren intravenous contrast. Sequences included coronal T2-weighted FS FSE, coronal T2-weighted FSE, a xial T1-weighted LAVA, coronal FS FIESTA, axial dual-echo T1-weighted SPGR, coronal lava-FLEX, sagitt al T2-weighted FSE, axial T2-weighted FSE, and axial DWI. Thick-slab T2-weighted FSE images were obta ined for magnetic resonance cholangiopancreatography (MRCP). Maximum intensity projection 3-D reconst ructions of the volumetric data were created by the technologist. Postcontrast sequences included cor onal LAVA-flex and time course of axial T1-weighted LAVA. COMPARISON: Abdomen ultrasound 06/03/2023, CT abdomen and pelvis 02/28/2020, chest CT 02/27/2022 FINDINGS: ABDOMEN MRI: There are ill-defined nodules in the lungs. There are small pleural effusions. There are greater than 10 masses in the liver measuring up to 4.3 cm. There is moderate intrahepatic biliary d uct dilatation. The gallbladder is distended and contains gallstones. Gallbladder wall thickening is noted. There is a 7.1 mm mass involving the tail of the pancreas and left adrenal gland. There is per iportal lymphadenopathy. There is a stricture of the common bile duct in the head of the pancreas. Th e spleen, right adrenal gland, and right kidney are normal. There is a 3.6 cm cyst in left kidney. Th ere is a moderate volume of ascites. There is peritoneal nodularity, consistent with carcinomatosis. There is severe lumbar spondylosis. There are areas of heterogeneous bone marrow. ABDOMEN MRCP: The common duct is dilated to 9 mm. There is a structure in the head of the pancreas. IMPRESSION: 1. 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 2. Liver masses, lung nodules, moderate volume of ascites with peritoneal carcinomatosis, and peripor tapan lymphadenopathy, consistent with metastatic disease. Ultrasound-guided paracentesis is recommende d. 3. Heterogeneous bone marrow signal intensity suspicious for metastatic disease. Specificity is decre ased by the degenerative changes of bone. Correlate with CT abdomen and pelvis with contrast. 4. Ill-defined lung nodules, likely metastatic disease. Chest CT with contrast is recommended. 5. Intrahepatic and extrahepatic biliary duct dilatation with distended gallbladder suspicious for ma lignant stricture in the head of the pancreas. 6. Cholelithiasis. Gallbladder wall thickening may be secondary to interstitial edema or acute or chr onic cholecystitis. Reviewed, dictated and finalized at location E. Y TINTER MAKER IMPRESSION: 1. Mass involving the pancreas and left adrenal gland, likely primary pancreati c adenocarcinoma. 2. Liver masses, lung nodules, moderate volume of ascites with peritoneal carci nomatosis, and periportal lymphadenopathy, consistent with metastatic disease. Ultrasound-guided paracentesis is recommended. 3. Heterogeneous bone marrow signal intensity suspicious for metastatic disease . Specificity is decreased by the degenerative changes of bone. Correlate with CT abdomen and pelvis with contrast. 4. Ill-defined lung nodules, likely metastatic disease. Chest CT with contrast is recommended. 5. Intrahepatic and extrahepatic biliary duct dilatation with distended gallbla dder suspicious for malignant stricture in the head of the pancreas. 6. Cholelithiasis. Gallbladder wall thickening may be secondary to interstitial edema or acute or chronic cholecystitis.
--- NOTE | ~2023-06-13 | US_ITS ---
EXAMINATION: US biopsy liver DATE: 06/16/2023 16:13 INDICATION: Metastatic disease with multiple hepatic masses TECHNIQUE: The procedure including the risks and benefits was discussed with the patient. Risks discu ssed included bleeding and infection. The patient understood the risks and agreed to proceed. The sk in overlying the right hepatic lobe was prepped and draped in usual sterile fashion. Anesthetic was administered with 1% lidocaine subcutaneously. An 18 gauge core biopsy needle was advanced under con tinuous ultrasound observation to the lesion of interest. 2 core biopsy specimens were obtained. The needle was removed and the entry site was cleaned and dressed. Post procedure ultrasound demonstra tom no hemorrhage. FINDINGS: Ultrasound images demonstrate biopsy needles advanced into a 3 cm hyperechoic mass with irr egular margins in the right hepatic lobe. IMPRESSION: 1. Successful Ultrasound-guided biopsy of a 3 cm hypoechoic mass in the right hepatic lobe. Reviewed, dictated and finalized at location A. MOTIVE PARTS CLERK IMPRESSION: 1. Successful Ultrasound-guided biopsy of a 3 cm hypoechoic mass in the right h epatic lobe.
--- NOTE | ~2023-06-13 | US_ITS ---
EXAMINATION: US paracentesis abd w/image DATE: 06/16/2023 16:11 INDICATION: Ascites. TECHNIQUE: The procedure and its risks and benefits were discussed with the patient. Potential risks discussed included bleeding and infection. The skin was prepped and draped in sterile fashion. 1% lid ocaine was used for local anesthesia. Under ultrasound guidance, a 5 Fr catheter with trochar was adv anced into the ascites in the right abdomen. Fluid was aspirated into vacuum bottles. A second skin s ite overlying the liver was prepped and draped in sterile fashion. 1% lidocaine was used for local an esthesia. Under ultrasound guidance a second 5F or catheter with trochar was advanced into the ascite s and aspirated into vacuum bottles. The catheter was removed and sterile dressings were applied. The re were no immediate complications. FINDINGS: Ultrasound images demonstrate ascites and the catheter within the fluid. IMPRESSION: 1. Successful ultrasound-guided paracentesis yielding 600 mL of dark yellowish-brown fluid. Reviewed, dictated and finalized at location A. INSPECTOR IMPRESSION: 1. Successful ultrasound-guided paracentesis yielding 600 mL of dark yellowish -brown fluid.
--- NOTE | ~2023-06-13 | XR_ITS ---
XR chest 1V portable DATE: 06/13/2023 22:04 INDICATION: Cough TECHNIQUE: . Portable AP chest on 06/13/2023 at 2201 hours COMPARISON: 02/27/2022 CT chest FINDINGS: Normal heart size. No hilar or mediastinal enlargement. There is mild infiltrate or atelectasis at both lung bases, primarily involving the lower lobes prima rily. Slight if any right pleural effusion. No pulmonary vascular congestion or pneumothorax. IMPRESSION: Mild bilateral lower lung infiltrate and/atelectasis Reviewed, dictated and finalized at location A. S COUNTER SPECIALIST
--- NOTE | 2023-06-13 21:36 | ED.GENADULT ---
HPI - General Adult General Chief complaint: Unspecified Stated complaint: jaundice, I have liver problems , cough Time Seen by Provider: 06/13/23 21:31 History of Present Illness HPI narrative: Patient is an 87-year-old male who presents to the emergency department this evening complaining cough and symptoms an upper respiratory infection. Patient states that he does have liver issues. Chart review revealed that patient recently saw his primary care physician and blood work revealed transaminitis with hyperbilirubinemia consistent with hepatitis. Patient is being followed for this by his primary care physician and Recently had an abdominal ultrasound which revealed gallstones biliary sludge, no gallbladder inflammation. Ultrasound also revealed multiple liver lesions and patient is pending an MRI for further evaluation. Patient was supposed to have this MRI this past , however, he missed his appointment because he said he felt so sick he could even make it to the appointment. Patient denies any additional symptoms at this time including chest pain, shortness of breath, nausea, vomiting, abdominal pain, dysuria, hematuria, constipation, diarrhea, melena, hematochezia, fevers or chills. Patient also denies any headaches, dizziness, lightheadedness, blurry visions, focal weakness, numbness and or tingling. There are no other modifying, alleviating, or precipitating factors at this time. Related Data Home Medications Medication Instructions Recorded Confirmed cholecalciferol (vitamin D3) 50 2,000 unit PO DAILY 04/28/19 06/02/23 mcg (2,000 unit) tablet ghbtmasd-nc-olnya 300 mcg-K 60 1 tablet PO DAILY 04/28/19 06/02/23 mcg-lycop 600 mcg-lutein 300 mcg tablet (Centrum Silver Men) acetaminophen PO PRN 01/10/21 06/02/23 calcium polycarbophil 625 mg 1,250 mg PO DAILY 04/05/21 06/02/23 tablet (FiberCon) polyethylene glycol 3350 17 17 g PO DAILY 11/13/21 06/02/23 gram/dose oral powder (Miralax) magnesium 250 mg tablet 250 mg PO DAILY 03/31/22 06/02/23 Allergies Allergy/AdvReac Type Severity Reaction Status Date / Time cephalexin Allergy Unknown Rash Verified 06/13/23 21:38 Review of Systems Review of Systems: Patient denies any chest pain, shortness of breath, nausea, vomiting, abdominal pain, dysuria, hematuria, constipation, diarrhea, melena, hematochezia, fevers or chills. Patient also denies any headaches, dizziness, lightheadedness, blurry visions, focal weakness, numbness and or tingling. There are no other modifying, alleviating, or precipitating factors at this time. [facility] Past Medical History Medical History Abdominal pain Acute blood loss anemia Acute hepatitis (~05/15/23) bilirubin 12.1, AST 106, ALT 107, alkaline phosphatase 395 with urine with 3+ bilirubin 06/02/2023. Complete abdominal ultrasound revealed no inflammation of the gallbladder with gallstones and sludge in the gallbladder noted. Multiple subtle lesions of the liver with need for MRI for further evaluation. Adenomatous colon polyp At moderate risk for fall (~11/20/22) BMI 27.0-27.9,adult Chronic cough Colon polyp, hyperplastic Constipation Cough Diarrhea Diverticulosis Duodenitis Encounter for prostate cancer screening PSA 2.91 on 11/11/2022. Essential (primary) hypertension GI bleed (12/17/20) acute lower GI bleeding 12/17/2020 with EGD and colonoscopy with no active bleeding with diverticulosis and duodenitis. 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 Total cholesterol 170, triglycerides 90, HDL 56, LDL 96 on 11/11/2022. Overweight (BMI 25.0-29.9) Pulmonary nodule less than 1 cm in diameter with low risk for malignant neoplasm 9 mm nodule right apex on CT 02/27/2021, unchanged with recheck in 1 year Vertigo Surgical History Surgical History (Revi
[2023-06-13 21:51] LABS: Basophils Percent Auto 0.5 % (0.2-1.2); Eosinophils Absolute Auto 0.1 K/mm3 (0-0.3); Eosinophils Percent Auto 0.9 % (0-4.4); Hematocrit 31.4 % (42.0-52.0); Immature Granulocyte Absolute 0.06 K/mm3 (0.00-0.031); Immature Granulocyte Percent A 0.7 % (0-0.5); Lymphocytes Absolute Auto 0.62 K/mm3 (0.9-3.2); Lymphocytes Percent Auto 7.2 % (18.3-44.2); Mean Corpuscular Hemoglobin 32.9 pg (26-34); Mean Platelet Volume 11.9 fl (7.4-10.4); Monocytes Percent Auto 11.7 % (2.6-8.5); Neutrophils Absolute Auto 6.8 K/mm3 (1.3-6.7); Platelet Count Result 262 k/mm3 (150-375); Red Blood Count 3.34 M/mm3 (4.6-6.20); Red Cell Distribution Width 18.9 % (11.5-14.5); White Blood Count 8.7 K/mm3 (4.5-10.0)
[2023-06-13 22:02] LABS: INR 1.6; Prothrombin Time 19.6 Seconds (11.1-14.7)
[2023-06-13 22:13] LABS: Alanine Aminotransferase 112 U/L (6-50); Albumin Level 3.1 g/dL (3.5-5.1); Alkaline Phosphatase 710 U/L (38-126); Anion Gap 10 mmol/L (8-16); Aspartate Amino Transferase 180 U/L (17-59); Blood Urea Nitrogen 39 mg/dL (9-20); Calcium 8.8 mg/dL (8.4-10.2); Carbon Dioxide 19 mmol/L (22-30); Chloride 108 mmol/L (98-107); Estimated CRCL calculation 46 ml/min; Estimated Glomerular Filt Rate > 60; Glucose 105 mg/dL (65-110); Potassium 3.8 mmol/L (3.4-5.0); Sodium 137 mmol/L (137-145)
[2023-06-13] MEDS: SODIUM CHLORIDE 0.9% IV 1,000 ML 75 ML IV CONT (22:19)
--- NOTE | 2023-06-13 22:20 | PC.NURSE ---
Per EDP Dr. Mchugh sodium chloride at 1000mls had a rate change of 75mls/ hour. THis RN used closed loop communication to confirm rate change with EDP Dr. Mchugh.
[2023-06-13 22:27] LABS: Influenza A QL RT-PCR Negative (Negative); Influenza B QL RT-PCR Negative (Negative); RSV RNA, RT-PCR Positive (Negative); SARS-CoV-2 RNA PCR Negative (Negative)
[2023-06-14] VITALS (10 sets, daily range): BP systolic 98–126; BP diastolic 55–62; PULSE 71–97; RESP 16–18; TEMP 36.4–36.8; O2SAT 93–95
[2023-06-14 00:28] LABS: Lactic Acid Reflex 1.2 mmol/L (0.7-2.0)
--- NOTE | 2023-06-14 00:44 | ADMGEN ---
This patient, Dada Kerns, was admitted to Medical Room 346-01. Patient/family oriented to hospital policies and general routines including ID bracelet, bed and alarms, visiting hours, pain management, procedures, bathroom and other care routines, personal items, smoking policy, room service/diet, and visiting hours. Information on how to activate the Rapid Response Team has been discussed. Patient/Family are encouraged to report perceived risks to care and to ask questions if they do not understand what they are told or what they should do.
--- NOTE | 2023-06-14 01:04 | PC.NURSE ---
Patient verbalizing refusal for life saving efforts in chance of decline.
[2023-06-14 06:08] LABS: Appearance Urine Cloudy (Clear); Bacteria Urine None Seen /hpf; Bilirubin Urine 3+ (Negative); Blood Urine Negative (Negative); Color Urine Dark Yellow (Yellow); Glucose Urine UA Negative (Negative); Hyaline Casts Urine Present /lpf; Ketones Urine Negative (Negative); Leukocyte Esterase Ur 1+ LEU/UL (Negative); Need Manual Microscopic Reviewed; Nitrate Urine Positive (Negative); Non Pathogenic Casts 0-2; Protein Urine 1+ mg/dL (Negative); Specific Grav Ur 1.022 (1.001-1.035); Squamous Epithelial Cell Urine None seen /hpf (Few); Urobilinogen Urine 0.2 mg/dL (<2.0); WBC Urine 0-5 /hpf; pH Urine 5.5 (5.0-9.0)
[2023-06-14 06:34] LABS: Add Urine Microscopic? YES
[2023-06-14 10:18] LABS: Bilirubin Direct 17.5 mg/dL (0-0.3)
--- NOTE | 2023-06-14 11:25 | PC.NURSE ---
[facility]
--- NOTE | 2023-06-14 17:04 | PM.IMHP ---
H&P: HPI History of Present Illness Date/Time: 06/14/23 17:04 Chief Complaint: Patient came to the ER for evaluation with the cough, weakness and worsening jaundice Narrative: He is a very pleasant 87 years old male who is complaining of dark urine and jaundice for the last week and a half. He went to the PCP and was told he has liver issues. He is diagnosed with hepatitis and has abdominal ultrasound which revealed gallstones and biliary sludge. Ultrasound also showed multiple liver lesions. Patient was suppose to have his MRI couple days ago but missed the appointment because he was very weak and tired. He came to the ER for evaluation for worsening symptoms. Workup was done which confirmed hyperbilirubinemia as well as RSV infection causing his cough and cold. He was also point to be dehydrated and started on IV fluids. He is being admitted for medical management, symptomatic care and GI evaluation for further workup for his jaundice and liver issues. Review of Systems Review of Systems: 14 systems were reviewed with pertinent positives and negatives per HPI. Except as documented in the HPI/progress notes, all other systems were reviewed and are negative. All systems reviewed & are unremarkable except as noted in HPI and below PMFSH Past Medical History Medical History Abdominal pain Acute blood loss anemia Acute hepatitis (~05/15/23) bilirubin 12.1, AST 106, ALT 107, alkaline phosphatase 395 with urine with 3+ bilirubin 06/02/2023. Complete abdominal ultrasound revealed no inflammation of the gallbladder with gallstones and sludge in the gallbladder noted. Multiple subtle lesions of the liver with need for MRI for further evaluation. Adenomatous colon polyp At moderate risk for fall (~11/20/22) BMI 27.0-27.9,adult Chronic cough Colon polyp, hyperplastic Constipation Cough Diarrhea Diverticulosis Duodenitis Encounter for prostate cancer screening PSA 2.91 on 11/11/2022. Essential (primary) hypertension GI bleed (12/17/20) acute lower GI bleeding 12/17/2020 with EGD and colonoscopy with no active bleeding with diverticulosis and duodenitis. 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 Total cholesterol 170, triglycerides 90, HDL 56, LDL 96 on 11/11/2022. Overweight (BMI 25.0-29.9) Pulmonary nodule less than 1 cm in diameter with low risk for malignant neoplasm 9 mm nodule right apex on CT 02/27/2021, unchanged with recheck in 1 year Vertigo Surgical History Surgical History History of colonoscopy with polypectomy History of excision of pilonidal cyst History of orthopedic surgery ORIF right wrist fracture. History of partial thyroidectomy Benign right thyroid nodule. Family History Family History Father Patient's father is , Onset Age: 75 Acute myocardial infarction Family history of primary malignant neoplasm of liver, Onset Age: 75 Grandparent Cerebrovascular accident, Onset Age: 80 Mother Family history of malignant neoplasm of breast, Onset Age: 81 Other Family history of arthritis Social History Social History Social History: The patient lives alone in his own home in [place]. He has never and has no children. No animals at home. Retired accounting. lifelong nonsmoker. No alcohol or illicit substance abuse. He designates his friend, Vineet Chávez, as his surrogate decision maker. Status code Smoking status: Never smoker Alcohol intake: never Substance use: never Substance use type: does not use Do You Feel Safe in your Home?: Yes Lack of Transportation: No Lack of Food: Never True Current Housing: I Have Housing
[2023-06-14] MEDS: SODIUM CHLORIDE 0.45% 1,000 ML 100 ML IV CONT (17:48)
[2023-06-14] MEDS: BENZONATATE 100 MG CAPSULE 200 MG PO (20:21)
[2023-06-14] MEDS: LORATADINE 10 MG TABLET PO (23:53)
[2023-06-15] VITALS (10 sets, daily range): BP systolic 94–109; BP diastolic 47–68; PULSE 59–86; RESP 14–18; TEMP 36.1–36.8; O2SAT 94–96
[2023-06-15] MEDS: SODIUM CHLORIDE 0.45% 1,000 ML 100 ML IV CONT ×2 (03:40→17:38)
[2023-06-15 05:41] LABS: Basophils Percent Auto 0.6 % (0.2-1.2); Eosinophils Absolute Auto 0.2 K/mm3 (0-0.3); Eosinophils Percent Auto 2.2 % (0-4.4); Hematocrit 26.5 % (42.0-52.0); Hemoglobin 9.5 g/dL (14.0-18.0); Immature Granulocyte Absolute 0.12 K/mm3 (0.00-0.031); Immature Granulocyte Percent A 1.8 % (0-0.5); Lymphocytes Absolute Auto 0.62 K/mm3 (0.9-3.2); Lymphocytes Percent Auto 9.2 % (18.3-44.2); Mean Corpuscular HGB Conc 35.8 g/dl (32-36); Mean Corpuscular Hemoglobin 32.9 pg (26-34); Mean Corpuscular Volume 91.7 fl (80-100); Mean Platelet Volume 11.3 fl (7.4-10.4); Monocytes Absolute Auto 0.8 K/mm3 (0.1-0.6); Monocytes Percent Auto 11.1 % (2.6-8.5); Neutrophils Absolute Auto 5.1 K/mm3 (1.3-6.7); Neutrophils Percent Auto 75.1 % (45.5-73.1); Platelet Count Result 213 k/mm3 (150-375); Red Blood Count 2.89 M/mm3 (4.6-6.20); Red Cell Distribution Width 19.4 % (11.5-14.5); White Blood Count 6.7 K/mm3 (4.5-10.0)
[2023-06-15 06:03] LABS: Alanine Aminotransferase 110 U/L (6-50); Albumin Level 2.3 g/dL (3.5-5.1); Alkaline Phosphatase 828 U/L (38-126); Anion Gap 5 mmol/L (8-16); Aspartate Amino Transferase 167 U/L (17-59); Bilirubin,Total 24.9 mg/dL (0.2-1.3); Blood Urea Nitrogen 25 mg/dL (9-20); Calcium 8.1 mg/dL (8.4-10.2); Carbon Dioxide 20 mmol/L (22-30); Chloride 112 mmol/L (98-107); Estimated CRCL calculation 63 ml/min; Estimated Glomerular Filt Rate > 60; Glucose 97 mg/dL (65-110); Magnesium 2.1 mg/dL (1.6-2.3); Phosphorus 2.9 mg/dL (2.5-4.5); Potassium 3.3 mmol/L (3.4-5.0); Sodium 137 mmol/L (137-145)
[2023-06-15] MEDS: CHOLECALCIFEROL 1,000 UNITS TABLET 2000 UNITS PO (09:14)
[2023-06-15] MEDS: BENZONATATE 100 MG CAPSULE 200 MG PO ×2 (09:14→17:55)
[2023-06-15] MEDS: OPTI-GEN TAB 1 TABLET PO (09:14)
[2023-06-15] MEDS: calcium polycarbophiL 625 MG TABLET 1250 MG PO (09:15)
[2023-06-15] MEDS: POTASSIUM CHLORIDE 20 MEQ ER TABLET 40 MEQ PO (09:15)
[2023-06-15] MEDS: MAGNESIUM 13.5 MG TABLET (250 MG MAG GLUCONATE) PO (09:15)
--- NOTE | 2023-06-15 13:26 | WPDGICN ---
Assessment and Plan Assessment and plan (1) Acute hepatitis: Onset Date: ~05/15/23 Code(s): B17.9 - Acute viral hepatitis, unspecified Status: Acute Assessment and Plan: wonder if could be related to RSV but probably could have underlying liver disease pending mri- need to assess if significant liver lesions will get AFP level trend liver enzymes (2) RSV (acute bronchiolitis due to respiratory syncytial virus): Code(s): J21.0 - Acute bronchiolitis due to respiratory syncytial virus Status: Acute Assessment and Plan: supportive care newly diagnosed (3) Cough: Code(s): R05.9 - Cough, unspecified Status: Acute (4) Abnormal liver ultrasound: Code(s): R93.2 - Abnormal findings on diagnostic imaging of liver and biliary tract Status: Acute Assessment and Plan: MRI liver pending hepatitis panel negative GI Consult Note Consult date/time: 06/15/23 13:26 Reason for consult: rsv, hepatitis HPI: Dada Kerns is a 87 year old male who has been coughing for 2-3 weeks, also noted dark urine and jaundice for almost 2 weeks, he went to see PCP, bili 12, hepatitis panel negative and he had RSV +. He is here with more fatigue and malaise. Ultrasound showed gallstones and biliary sludge, also heterogeneous liver, with suggestion of multiple subtle hyperechoic masses. Metastatic disease or multiple hemangiomas are considerations, or possibly heterogeneous parenchyma- he did not follow-up for MRI. Finally came to ER and admitted, noted worsening bili 28. He denies liver disease, no alcohol use. Review of Systems Constitutional: Constitutional: Reports fatigue and Reports lethargy Eyes: Eyes: Denies blurry vision ENT: Comments: cough Cardiovascular: Cardiovascular: Denies chest pain Respiratory: Respiratory: Reports cough Gastrointestinal: Gastrointestinal: Denies abdominal pain Genitourinary: Comments: dark urine Musculoskeletal: Musculoskeletal: Denies neck pain Integumentary/Breasts: Comments: jaundice Neurologic: Denies Abnormal speech present Psychiatric: Psychiatric: Denies confusion PMFSH Past Medical History Medical History (Updated 06/15/23 @ 13:31 by Ambrosio Rivera MD) Abdominal pain Abnormal liver ultrasound Acute blood loss anemia Acute hepatitis (~05/15/23) bilirubin 12.1, AST 106, ALT 107, alkaline phosphatase 395 with urine with 3+ bilirubin 06/02/2023. Complete abdominal ultrasound revealed no inflammation of the gallbladder with gallstones and sludge in the gallbladder noted. Multiple subtle lesions of the liver with need for MRI for further evaluation. Adenomatous colon polyp At moderate risk for fall (~11/20/22) BMI 27.0-27.9,adult Chronic cough Colon polyp, hyperplastic Constipation Cough Diarrhea Diverticulosis Duodenitis Encounter for prostate cancer screening PSA 2.91 on 11/11/2022. Essential (primary) hypertension GI bleed (12/17/20) acute lower GI bleeding 12/17/2020 with EGD and colonoscopy with no active bleeding with diverticulosis and duodenitis. 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 Total cholesterol 170, triglycerides 90, HDL 56, LDL 96 on 11/11/2022. Overweight (BMI 25.0-29.9) Pulmonary nodule less than 1 cm in diameter with low risk for malignant neoplasm 9 mm nodule right apex on CT 02/27/2021, unchanged with recheck in 1 year Vertigo Surgical History Surgical History History of colonoscopy with polypectomy History of excision of pilonidal cyst History of orthopedic surgery ORIF right wrist fracture. History of partial thyroidectomy Benign right thyroid nodule. Family History Family History Father Patient's father is , Ons
--- NOTE | 2023-06-15 17:43 | PM.IMPN ---
Progress Note: A&P Assessment and Plan (1) Hepatitis: Code(s): K75.9 - Inflammatory liver disease, unspecified Status: Acute (2) Cough: Code(s): R05.9 - Cough, unspecified Status: Acute (3) Acute hepatitis: Onset Date: ~05/15/23 Code(s): B17.9 - Acute viral hepatitis, unspecified Status: Acute (4) Diarrhea: Qualifiers: Diarrhea type: unspecified type Qualified Code(s): R19.7 - Diarrhea, unspecified Code(s): R19.7 - Diarrhea, unspecified Status: Acute (5) Abdominal pain: Code(s): R10.9 - Unspecified abdominal pain Status: Acute (6) Irritable bowel syndrome with constipation: Code(s): K58.1 - Irritable bowel syndrome with constipation Status: Acute (7) Essential (primary) hypertension: Code(s): I10 - Essential (primary) hypertension Status: Chronic (8) Anemia: Qualifiers: Anemia type: unspecified type Qualified Code(s): D64.9 - Anemia, unspecified Code(s): D64.9 - Anemia, unspecified Status: Acute (9) Mixed hyperlipidemia: Code(s): E78.2 - Mixed hyperlipidemia Status: Acute (10) RSV (acute bronchiolitis due to respiratory syncytial virus): Code(s): J21.0 - Acute bronchiolitis due to respiratory syncytial virus Status: Acute Plan Admit patient to medical unit under full inpatient status Patient diagnosed with respiratory syncytial virus causing bronchiolitis leading to cough and cold Patient undergoing require symptomatic treatment for his RSV infection Patient started on IV hydration in the ER which we will continue on the floor Strict input and output monitoring Patient had severely elevated total bilirubin of 28 on admission with direct bilirubin at 17.5 pointing towards hepatic source Bilirubin level is slowly downtrending 28-24.9 Patient has mildly elevated LFTs as well which are being monitored closely MRCP ordered for further evaluation of hepatic biliary system Gastroenterology consult reviewed and appreciated Follow-up closely with Gastroenterology for further management Potassium level was low at 3.3 and supplemented with 40 mg KCL x1 dose ? Patient seen and examined at bedside during my morning rounds ? Collaborated with patient's nurse at the bedside in detail and addressed all concerns ? Labs, electrolytes, radiology, investigations and test results reviewed ? Consult/Nursing/Ancilliary notes on the chart reviewed and appreciated ? Spoke with patient/family at the bedside and answered all the questions that they had Repeat labs in a.m. Electrolyte replacement as per protocol. Patient will be monitored very closely on the floor. Further recommendations as per the hospital course. Subjective Date/time seen: 06/15/23 17:43 Interval history: Patient feeling a little better today. Still complains of being tired and fatigued. Seen by GI today for further workup. Review of Systems Review of Systems: 14 systems were reviewed with pertinent positives and negatives per HPI. Except as documented in the HPI/progress notes, all other systems were reviewed and are negative. All systems reviewed & are unremarkable except as noted in HPI and below Exam Narrative: PHYSICAL EXAMINATION: Vital signs: Please see the chart General physical exam: Patient lying in bed, visibly jaundiced, appears tired and fatigued yet pleasant and cooperative with exam Head/eyes: Atraumatic, EOMI, PERRLA ENT: Moist mucous membranes, nasal passages clear Neck: Supple, full range of motion, trachea midline CVS: S1 + S2, regular rate and rhythm, no murmurs Respiratory: Bilaterally fair air entry in both lung yates, mild B/L crackles, symmetric chest expansion, no distress Abdomen: Soft, + mild tenderness on deep palpation, bowel sounds +ve, no organomegaly Extremities: No clubbing, no cyanosis, no edema, no calf tenderness Musculoskeletal: Moves all, adequate range of
[2023-06-16] VITALS (8 sets, daily range): BP systolic 118–129; BP diastolic 57–68; PULSE 69–80; RESP 16–18; TEMP 36.6–37.1; O2SAT 94–97
[2023-06-16] MEDS: SODIUM CHLORIDE 0.45% 1,000 ML 100 ML IV CONT ×2 (05:00→20:25)
[2023-06-16] MEDS: BENZONATATE 100 MG CAPSULE 200 MG PO ×2 (05:00→20:25)
[2023-06-16 07:40] LABS: Basophils Absolute Auto 0.1 K/mm3 (0.0-0.1); Basophils Percent Auto 1.2 % (0.2-1.2); Eosinophils Absolute Auto 0.3 K/mm3 (0-0.3); Eosinophils Percent Auto 2.8 % (0-4.4); Hematocrit 32.1 % (42.0-52.0); Hemoglobin 11.4 g/dL (14.0-18.0); Immature Granulocyte Absolute 0.32 K/mm3 (0.00-0.031); Immature Granulocyte Percent A 3.6 % (0-0.5); Lymphocytes Absolute Auto 0.76 K/mm3 (0.9-3.2); Lymphocytes Percent Auto 8.5 % (18.3-44.2); Mean Corpuscular HGB Conc 35.5 g/dl (32-36); Mean Corpuscular Hemoglobin 33.3 pg (26-34); Mean Corpuscular Volume 93.9 fl (80-100); Mean Platelet Volume 11.5 fl (7.4-10.4); Monocytes Absolute Auto 0.9 K/mm3 (0.1-0.6); Monocytes Percent Auto 10.4 % (2.6-8.5); Neutrophils Absolute Auto 6.6 K/mm3 (1.3-6.7); Neutrophils Percent Auto 73.5 % (45.5-73.1); Platelet Count Result 292 k/mm3 (150-375); Red Blood Count 3.42 M/mm3 (4.6-6.20); Red Cell Distribution Width 20.2 % (11.5-14.5)
[2023-06-16] MEDS: CHOLECALCIFEROL 1,000 UNITS TABLET 2000 UNITS PO (08:10)
[2023-06-16] MEDS: calcium polycarbophiL 625 MG TABLET 1250 MG PO (08:10)
[2023-06-16] MEDS: OPTI-GEN TAB 1 TABLET PO (08:10)
[2023-06-16] MEDS: MAGNESIUM 13.5 MG TABLET (250 MG MAG GLUCONATE) PO (08:10)
[2023-06-16] MEDS: polyethylene glycoL 3350 17 GM POWD.PACK PO (08:11)
[2023-06-16] MEDS: ENALAPRIL MALEATE 10 MG TABLET 20 MG PO (08:14)
[2023-06-16 08:29] LABS: Alanine Aminotransferase 134 U/L (6-50); Albumin Level 2.7 g/dL (3.5-5.1); Alkaline Phosphatase 1193 U/L (38-126); Anion Gap 7 mmol/L (8-16); Aspartate Amino Transferase 209 U/L (17-59); Bilirubin,Total 28.5 mg/dL (0.2-1.3); Blood Urea Nitrogen 16 mg/dL (9-20); Calcium 8.6 mg/dL (8.4-10.2); Carbon Dioxide 20 mmol/L (22-30); Chloride 110 mmol/L (98-107); Estimated CRCL calculation 63 ml/min; Estimated Glomerular Filt Rate > 60; Glucose 106 mg/dL (65-110); Potassium 3.8 mmol/L (3.4-5.0); Sodium 137 mmol/L (137-145)
--- NOTE | 2023-06-16 15:24 | WPDGIPROGNO ---
Progress Note: A&P Assessment and Plan (1) Metastatic adenocarcinoma: Code(s): C79.9 - Secondary malignant neoplasm of unspecified site Status: Acute Assessment and Plan: MRCP findings discussed with patient- several mets, possible abd carcinomatosis and possible primary is pancreas will ask interventional radiology if can get sample from LN vs liver +/- ascites for cytology will need oncology consult poor prognosis regardless will add Ca 19-9 (2) Abdominal carcinomatosis: Onset Date: ~04/2023 Code(s): C76.2 - Malignant neoplasm of abdomen Status: Acute (3) Jaundice: Code(s): R17 - Unspecified jaundice Status: Acute Assessment and Plan: from mri finding will advance diet (4) RSV (acute bronchiolitis due to respiratory syncytial virus): Code(s): J21.0 - Acute bronchiolitis due to respiratory syncytial virus Status: Acute Assessment and Plan: still coughing (5) Cough: Code(s): R05.9 - Cough, unspecified Status: Acute Subjective Date/time seen: 06/16/23 15:24 Interval history: no changes and still coughing, family members at bedside discussed with patient abnormal findings of MRCP Review of Systems Review of Systems: All systems reviewed & are unremarkable except as noted in HPI and below Exam Const: General: comfortable Other: jaundice HENMT: Face/Nose/Sinus: Normal nares present Eyes: Sclera: scleral abnormality (icteric) Neck: Neck: supple Resp: Effort & Inspection: normal respiratory effort Cardio: Rate: regular rate GI: GI Palp: Yes Soft to palpation, No Tenderness to palpation present (GI) and No Guarding due to palpation present (GI) Auscultation: normal bowel sounds Skin: Other: jaundice Neuro: Speech: normal speech Motor exam (neuro): 5/5 motor strength present throughout Extrem: General: normal to inspection Psych: Affect: normal affect Objective Data Vital Signs Vital Signs: Vital Signs - 24 hr 06/15/23 16:00 06/15/23 20:00 06/15/23 22:00 Temperature 98.2 F Pulse Rate 59 L 61 86 Respiratory Rate 18 Blood Pressure 109/47 L Pulse Oximetry 96 Oxygen Delivery 06/16/23 00:00 06/16/23 04:00 06/16/23 06:00 Temperature 98.0 F Pulse Rate 76 69 79 Respiratory Rate 16 Blood Pressure 129/63 Pulse Oximetry 94 Oxygen Delivery 06/16/23 08:17 06/16/23 08:00 06/16/23 12:00 Temperature Pulse Rate 70 80 Respiratory Rate Blood Pressure Pulse Oximetry Oxygen Delivery Room Air 06/16/23 14:54 Temperature 97.9 F Pulse Rate 77 Respiratory Rate 16 Blood Pressure 118/68 Pulse Oximetry 96 Oxygen Delivery Intake/Output Intake/Output: Intake & Output 06/13/23 06/14/23 06/15/23 06/16/23 23:59 23:59 23:59 23:59 Intake Total 2760 2840 1695 Output Total 1075 825 725 Balance 1682014 Meds/Results Medications: Active Medications Generic Name Dose Route Start Last Admin Trade Name Freq PRN Reason Stop Dose Admin Al Hydrox/Mg Hydrox/Simethicone 30 ml 06/14/23 17:16 Mag Hydrox/Al Hydrox/Simeth 30 Ml Udc PO QID PRN Dyspepsia Benzonatate 200 mg 06/14/23 17:21 06/16/23 05:00 Benzonatate 100 Mg Capsule PO 200 mg TID PRN Administration cough Calcium Polycarbophil 1,250 mg 06/15/23 09:00 06/16/23 08:10 Calcium Polycarbophil 625 Mg Tablet PO 1,250 mg DAILY MERISSA Administration Enalapril Maleate 20 mg 06/15/23 09:00 06/16/23 08:14 Enalapril Maleate 10 Mg Tablet PO 20 mg DAILY MERISSA Administration Sodium Chloride 1,000 mls @ 100 mls/hr 06/14/23 17:20 06/16/23 11:11 Sodium Chloride 0.45% IV CONT Not Given .Q10H MERISSA Magnesium Gluconate 13.5 mg 06/15/23 09:00 06/16/23 08:10 Magnesium 13.5 Mg Tablet (250 Mg Mag Gluconate) PO 07/15/23 08:59 13.5 mg DAILY MERISSA Administration Multivitamins/Minerals 1 tablet 06/15/23 09:00 06/16/23 08:10 Opti-Gen
--- NOTE | 2023-06-16 15:25 | PC.NURSE ---
Patient off of unit to ultrasound
--- NOTE | 2023-06-16 18:24 | PM.IMPN ---
Progress Note: A&P Assessment and Plan (1) Hepatitis: Code(s): K75.9 - Inflammatory liver disease, unspecified Status: Acute (2) Cough: Code(s): R05.9 - Cough, unspecified Status: Acute (3) Acute hepatitis: Onset Date: ~05/15/23 Code(s): B17.9 - Acute viral hepatitis, unspecified Status: Acute (4) Diarrhea: Qualifiers: Diarrhea type: unspecified type Qualified Code(s): R19.7 - Diarrhea, unspecified Code(s): R19.7 - Diarrhea, unspecified Status: Acute (5) Abdominal pain: Code(s): R10.9 - Unspecified abdominal pain Status: Acute (6) Irritable bowel syndrome with constipation: Code(s): K58.1 - Irritable bowel syndrome with constipation Status: Acute (7) Essential (primary) hypertension: Code(s): I10 - Essential (primary) hypertension Status: Chronic (8) Anemia: Qualifiers: Anemia type: unspecified type Qualified Code(s): D64.9 - Anemia, unspecified Code(s): D64.9 - Anemia, unspecified Status: Acute (9) Mixed hyperlipidemia: Code(s): E78.2 - Mixed hyperlipidemia Status: Acute (10) RSV (acute bronchiolitis due to respiratory syncytial virus): Code(s): J21.0 - Acute bronchiolitis due to respiratory syncytial virus Status: Acute Plan Admit patient to medical unit under full inpatient status Patient diagnosed with respiratory syncytial virus causing bronchiolitis leading to cough and cold Patient undergoing require symptomatic treatment for his RSV infection Patient started on IV hydration in the ER which we will continue on the floor Strict input and output monitoring Patient had severely elevated total bilirubin of 28 on admission with direct bilirubin at 17.5 pointing towards hepatic source Bilirubin level remains between 24.9 and 28.5 Patient has mildly elevated LFTs as well which are being monitored closely MRCP ordered for further evaluation of hepatic biliary system MRCP findings consistent with high probability pancreatic adenocarcinoma with several liver mets and abdominal carcinomatosis GI spoke with the patient in detail about diagnosis, prognosis and staging workup Patient ordered liver biopsy/lymph node biopsy/paracentesis to get a tissue sample for diagnosis and staging Discussed with patient in detail regarding Hematology-Oncology referral and management options including hospice Patient taking time to discuss with family regarding treatment options We do not have a Hematology-Oncology service this week hence will refer patient to see Hematology-Oncology as an outpatient Follow-up closely with Gastroenterology for further management Potassium level was low at 3.3 and supplemented with 40 mg KCL x1 dose ... Now within normal limits His long full prognosis remains poor and guarded ? Patient seen and examined at bedside during my morning rounds ? Collaborated with patient's nurse at the bedside in detail and addressed all concerns ? Labs, electrolytes, radiology, investigations and test results reviewed ? Consult/Nursing/Ancilliary notes on the chart reviewed and appreciated ? Spoke with patient/family at the bedside and answered all the questions that they had Repeat labs in a.m. Electrolyte replacement as per protocol. Patient will be monitored very closely on the floor. Further recommendations as per the hospital course. Time Spent With Patient Time with patient: 25 - 35 minutes Subjective Date/time seen: 06/16/23 18:24 Interval history: MRCP findings pointing towards pancreatic adenocarcinoma with meds. Discussed with patient in detail regarding management options including Heme-Onc consult and hospice. He is not happy with the news but trying to process it. Answered all questions that he had Review of Systems Review of Systems: 14 systems were reviewed with pertinent positives and negatives per HPI. Except as documented in the HPI/progress
[2023-06-17] VITALS (9 sets, daily range): BP systolic 106–122; BP diastolic 64–72; PULSE 71–85; RESP 16–18; TEMP 36.4–36.9; O2SAT 94–96
[2023-06-17 06:09] LABS: Basophils Absolute Auto 0.1 K/mm3 (0.0-0.1); Eosinophils Absolute Auto 0.2 K/mm3 (0-0.3); Eosinophils Percent Auto 2.6 % (0-4.4); Hematocrit 30.1 % (42.0-52.0); Hemoglobin 10.6 g/dL (14.0-18.0); Immature Granulocyte Percent A 5.2 % (0-0.5); Lymphocytes Absolute Auto 0.53 K/mm3 (0.9-3.2); Lymphocytes Percent Auto 6.9 % (18.3-44.2); Mean Corpuscular HGB Conc 35.2 g/dl (32-36); Mean Corpuscular Hemoglobin 32.9 pg (26-34); Mean Corpuscular Volume 93.5 fl (80-100); Mean Platelet Volume 11.1 fl (7.4-10.4); Monocytes Absolute Auto 0.8 K/mm3 (0.1-0.6); Monocytes Percent Auto 10.2 % (2.6-8.5); Neutrophils Absolute Auto 5.7 K/mm3 (1.3-6.7); Neutrophils Percent Auto 74.1 % (45.5-73.1); Platelet Count Result 247 k/mm3 (150-375); Red Blood Count 3.22 M/mm3 (4.6-6.20); Red Cell Distribution Width 20.4 % (11.5-14.5); White Blood Count 7.6 K/mm3 (4.5-10.0)
[2023-06-17 06:44] LABS: Alanine Aminotransferase 124 U/L (6-50); Albumin Level 2.4 g/dL (3.5-5.1); Alkaline Phosphatase 1097 U/L (38-126); Anion Gap 8 mmol/L (8-16); Aspartate Amino Transferase 169 U/L (17-59); Blood Urea Nitrogen 13 mg/dL (9-20); Calcium 8.3 mg/dL (8.4-10.2); Carbon Dioxide 19 mmol/L (22-30); Chloride 111 mmol/L (98-107); Estimated CRCL calculation 63 ml/min; Estimated Glomerular Filt Rate > 60; Glucose 110 mg/dL (65-110); Potassium 3.4 mmol/L (3.4-5.0); Sodium 138 mmol/L (137-145)
--- NOTE | 2023-06-17 06:50 | WPDGIPROGNO ---
Progress Note: A&P Assessment and Plan (1) Metastatic adenocarcinoma: Code(s): C79.9 - Secondary malignant neoplasm of unspecified site Status: Acute (2) Jaundice: Code(s): R17 - Unspecified jaundice Status: Acute (3) Abnormal liver ultrasound: Code(s): R93.2 - Abnormal findings on diagnostic imaging of liver and biliary tract Status: Acute Assessment and Plan: Imaging suggests that he has metastatic disease to the liver. MRI shows: 1. 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 2. Liver masses, lung nodules, moderate volume of ascites with peritoneal carcinomatosis, and periportal lymphadenopathy, consistent with metastatic disease. Ultrasound-guided paracentesis is recommended. 3. Heterogeneous bone marrow signal intensity suspicious for metastatic disease. Specificity is decreased by the degenerative changes of bone. Correlate with CT abdomen and pelvis with contrast. 4. Ill-defined lung nodules, likely metastatic disease. Chest CT with contrast is recommended. 5. Intrahepatic and extrahepatic biliary duct dilatation with distended gallbladder suspicious for malignant stricture in the head of the pancreas. 6. Cholelithiasis. Gallbladder wall thickening may be secondary to interstitial edema or acute or chronic cholecystitis (4) Anemia: Qualifiers: Anemia type: unspecified type Qualified Code(s): D64.9 - Anemia, unspecified Code(s): D64.9 - Anemia, unspecified Status: Acute Assessment and Plan: hemoglobin 9.5. Hematocrit 26.5. Subjective Date/time seen: 06/17/23 06:50 no complaints today. He had a liver biopsy yesterday. Denies any significant pain related to that. He has a fair appetite but states he has not been eating great. He would like to stay on a regular diet. He understands that he has metastatic cancer and the primary is to be determined but may be pancreatic. He denies pruritus. Exam Const: General: cooperative and healthy appearing Orientation/consciousness: patient oriented x3 HENMT: Head: normal to inspection Ears: hearing grossly normal bilaterally Mouth: Yes Normal oral and palatal mucosa present Eyes: General: appearance normal, both eyes and all related structures Sclera: scleral abnormality bilateral other ( icteric) Neck: Neck: normal visual inspection Chest: Chest palpation & inspection: normal inspection of the chest Resp: Effort & Inspection: normal respiratory effort Auscultation: clear to auscultation bilaterally Cardio: Rate: regular rate Rhythm: regular rhythm GI: Inspection: normal to inspection GI Palp: Yes Soft to palpation and Yes Hepatomegaly present Auscultation: normal bowel sounds Skin: General skin exam: normal color and no jaundice Neuro: General: patient oriented x3 Speech: normal speech Objective Data Vital Signs Vital Signs: Vital Signs - 24 hr 06/16/23 08:17 06/16/23 08:00 06/16/23 12:00 Temperature Pulse Rate 70 80 Respiratory Rate Blood Pressure Pulse Oximetry Oxygen Delivery Room Air 06/16/23 14:54 06/16/23 20:00 06/16/23 22:00 Temperature 36.6 C 37.1 C Pulse Rate 77 80 73 Respiratory Rate 16 18 Blood Pressure 118/68 118/57 L Pulse Oximetry 96 97 Oxygen Delivery 06/17/23 00:00 06/17/23 04:00 Temperature Pulse Rate 83 74 Respiratory Rate Blood Pressure Pulse Oximetry Oxygen Delivery Intake/Output Intake/Output: Intake & Output 06/14/23 06/15/23 06/16/23 06/17/23 23:59 23:59 23:59 23:59 Intake Total 2760 2840 3115 Output Total 5731 623 5447 Balance 1685 2014 1790 Meds/Results Medications: Active Medications Generic Name Dose Route Start Last Admin Trade Name Freq PRN Reason Stop Dose Admin Al Hydrox/Mg Hydrox/Simethicone 30 ml 06/14/23 17:16 Mag Hydrox/Al Hydrox/Simeth 30 Ml Udc PO QID PRN Dyspepsia Benzonatate 200 mg 06/14/23 1
[2023-06-17 07:42] LABS: Anisocytosis 1+ (NORMAL); Hypochromasia 2+ (NORMAL); Microcytosis 1+ (NORMAL); Ovalocytes 1+ (NORMAL); Platelet Estimate Adequate (Adequate); Schistocytes None Seen (NORMAL); Target Cells 2+ (NORMAL)
[2023-06-17] MEDS: CHOLECALCIFEROL 1,000 UNITS TABLET 2000 UNITS PO (08:17)
[2023-06-17] MEDS: ENALAPRIL MALEATE 10 MG TABLET 20 MG PO (08:17)
[2023-06-17] MEDS: polyethylene glycoL 3350 17 GM POWD.PACK PO (08:17)
[2023-06-17] MEDS: MAGNESIUM 13.5 MG TABLET (250 MG MAG GLUCONATE) PO (08:18)
[2023-06-17] MEDS: calcium polycarbophiL 625 MG TABLET 1250 MG PO (08:18)
[2023-06-17] MEDS: OPTI-GEN TAB 1 TABLET PO (08:18)
--- NOTE | 2023-06-17 15:21 | PDONCCN ---
HPI - Date of Consult Date/Time: 06/17/23 15:21 Requesting Physician: Ziyad Reyes MD Primary Care Provider: Pranav Alexandre MD - Consult Narrative Reason for consult: pancreatic mass with possible metastatic to the liver and lung Narrative: Dada Kerns is a 87 year old male who was found to have metastatic disease to the liver , lung and peritoneal carcinomatosis with pancreatic mass. s/p biopsy of the liver on Jun 16, 2023 and the result is still pending patient reports of having the shortness of breath with cough. he reports of feeling weak and tired. he mentioned that he doesnt want to be on chemotherapy and he wants to be on comfort care Review of Systems - Neurologic Denies abnormal speech, Denies confusion PMFSH Medical History: Medical History (Last Updated 06/16/23 @ 15:27 by Ambrosio Rivera MD) Abdominal carcinomatosis Onset Date: ~04/2023 MRCP on 06/14/2023 with 7 mm mass at the tail the pancreas with multiple masses to the liver and nodules in the lungs with ascites with probable metastatic pancreatic adenocarcinoma. Abdominal pain Abnormal liver ultrasound Acute blood loss anemia Acute hepatitis Onset Date: ~05/15/23 bilirubin 12.1, AST 106, ALT 107, alkaline phosphatase 395 with urine with 3+ bilirubin 06/02/2023. Complete abdominal ultrasound revealed no inflammation of the gallbladder with gallstones and sludge in the gallbladder noted. Multiple subtle lesions of the liver with need for MRI for further evaluation. Adenomatous colon polyp At moderate risk for fall Onset Date: ~11/20/22 BMI 27.0-27.9,adult Chronic cough Colon polyp, hyperplastic Constipation Cough Diarrhea Diverticulosis Duodenitis Encounter for prostate cancer screening PSA 2.91 on 11/11/2022. Essential (primary) hypertension GI bleed Onset Date: 12/17/20 acute lower GI bleeding 12/17/2020 with EGD and colonoscopy with no active bleeding with diverticulosis and duodenitis. History of colon polyps Irritable bowel syndrome with constipation Jaundice Metastatic adenocarcinoma Mixed hyperlipidemia Cholesterol 180, triglycerides 72, HDL 60, LDL 104 on 11/05/2021. Total cholesterol 170, triglycerides 90, HDL 56, LDL 96 on 11/11/2022. Overweight (BMI 25.0-29.9) Pulmonary nodule less than 1 cm in diameter with low risk for malignant neoplasm 9 mm nodule right apex on CT 02/27/2021, unchanged with recheck in 1 year Vertigo Surgical History: Surgical History (Last Reviewed 06/14/23 @ 17:09 by Ziyad Reyes MD) History of colonoscopy with polypectomy History of excision of pilonidal cyst History of orthopedic surgery ORIF right wrist fracture. History of partial thyroidectomy Benign right thyroid nodule. Family History: Family History (Last Reviewed 06/14/23 @ 17:09 by Ziyad Reyes MD) Father Patient's father is , Onset Age: 75 Acute myocardial infarction Family history of primary malignant neoplasm of liver, Onset Age: 75 Grandparent Cerebrovascular accident, Onset Age: 80 Mother Family history of malignant neoplasm of breast, Onset Age: 81 Other Family history of arthritis - Social History Social History: Social History (Last Reviewed 06/14/23 @ 17:09 by Ziyad Reyes MD) Sexual Orientation: Sexual Orientation (if Verbalized by the Patient): . Alcohol Use: Alcohol intake: never Substance Use: Substance use: never Substance use type: does not use Others: Spiritual care concerns: No Smoking Status: Smoking status: Never smoker Social Determinants of Health: Do You Feel Safe in your Home?: Yes Has the Lack of Transportation Kept You From Medical Appointments or From Getting Medications?: No Within the Past 12 Months, Were You Worried Whether Your Food Would Run Out Before You Got Money to Buy More?: Never True What is Your Housing Situation Today?: I Have Housing Ar
[2023-06-17] MEDS: SODIUM CHLORIDE 0.45% 1,000 ML 100 ML IV CONT (17:10)
--- NOTE | 2023-06-17 17:40 | PM.IMPN ---
Progress Note: A&P Assessment and Plan (1) Hepatitis: Code(s): K75.9 - Inflammatory liver disease, unspecified Status: Acute (2) Cough: Code(s): R05.9 - Cough, unspecified Status: Acute (3) Acute hepatitis: Onset Date: ~05/15/23 Code(s): B17.9 - Acute viral hepatitis, unspecified Status: Acute (4) Diarrhea: Qualifiers: Diarrhea type: unspecified type Qualified Code(s): R19.7 - Diarrhea, unspecified Code(s): R19.7 - Diarrhea, unspecified Status: Acute (5) Abdominal pain: Code(s): R10.9 - Unspecified abdominal pain Status: Acute (6) Irritable bowel syndrome with constipation: Code(s): K58.1 - Irritable bowel syndrome with constipation Status: Acute (7) Essential (primary) hypertension: Code(s): I10 - Essential (primary) hypertension Status: Chronic (8) Anemia: Qualifiers: Anemia type: unspecified type Qualified Code(s): D64.9 - Anemia, unspecified Code(s): D64.9 - Anemia, unspecified Status: Acute (9) Mixed hyperlipidemia: Code(s): E78.2 - Mixed hyperlipidemia Status: Acute (10) RSV (acute bronchiolitis due to respiratory syncytial virus): Code(s): J21.0 - Acute bronchiolitis due to respiratory syncytial virus Status: Acute (11) Jaundice: Code(s): R17 - Unspecified jaundice Status: Acute (12) Metastatic adenocarcinoma: Code(s): C79.9 - Secondary malignant neoplasm of unspecified site Status: Acute (13) Abdominal carcinomatosis: Onset Date: ~04/2023 Code(s): C76.2 - Malignant neoplasm of abdomen Status: Acute (14) Abnormal liver ultrasound: Code(s): R93.2 - Abnormal findings on diagnostic imaging of liver and biliary tract Status: Acute Plan Admit patient to medical unit under full inpatient status Patient diagnosed with respiratory syncytial virus causing bronchiolitis leading to cough and cold Patient undergoing require symptomatic treatment for his RSV infection Patient started on IV hydration in the ER which we will continue on the floor Strict input and output monitoring Patient had severely elevated total bilirubin of 28 on admission with direct bilirubin at 17.5 pointing towards hepatic source Bilirubin level remains between 24.9 and 28.5 Patient has mildly elevated LFTs as well which are being monitored closely MRCP ordered for further evaluation of hepatic biliary system MRCP findings consistent with high probability pancreatic adenocarcinoma with several liver mets and abdominal carcinomatosis GI spoke with the patient in detail about diagnosis, prognosis and staging workup Patient ordered liver biopsy/lymph node biopsy/paracentesis to get a tissue sample for diagnosis and staging Discussed with patient in detail regarding Hematology-Oncology referral and management options including hospice Patient taking time to discuss with family regarding treatment options We found hematology-Oncology service coverage hands I consulted Hematology-Oncology to evaluate the patient in the hospital Patient made his cousin is his power of document review attorney Patient spoke with family and is leaning towards home with hospice at this point DC planning home with hospice versus home with outpatient Oncology follow-up once final issue is taking by patient and family in am Continue with oral Benadryl as needed for itchiness due to hyperbilirubinemia ? Patient seen and examined at bedside during my morning rounds ? Collaborated with patient's nurse at the bedside in detail and addressed all concerns ? Labs, electrolytes, radiology, investigations and test results reviewed ? Consult/Nursing/Ancilliary notes on the chart reviewed and appreciated ? Spoke with patient/family at the bedside and answered all the questions that they had Repeat labs in a.m. Electrolyte replacement as per protocol. Patient will be monitored very closely on
[2023-06-17 20:27] LABS: GGT 668 U/L (3-70)
[2023-06-17] MEDS: BENZONATATE 100 MG CAPSULE 200 MG PO (20:41)
[2023-06-18] VITALS (13 sets, daily range): BP systolic 99–118; BP diastolic 51–68; PULSE 66–88; RESP 16–18; TEMP 36.5–36.8; O2SAT 94–96
[2023-06-18 05:55] LABS: Basophils Absolute Auto 0.1 K/mm3 (0.0-0.1); Basophils Percent Auto 0.7 % (0.2-1.2); Eosinophils Absolute Auto 0.2 K/mm3 (0-0.3); Eosinophils Percent Auto 2.2 % (0-4.4); Hematocrit 28.2 % (42.0-52.0); Immature Granulocyte Absolute 0.37 K/mm3 (0.00-0.031); Immature Granulocyte Percent A 4.4 % (0-0.5); Lymphocytes Percent Auto 7.2 % (18.3-44.2); Mean Corpuscular HGB Conc 35.5 g/dl (32-36); Mean Corpuscular Hemoglobin 33.2 pg (26-34); Mean Corpuscular Volume 93.7 fl (80-100); Mean Platelet Volume 11.4 fl (7.4-10.4); Monocytes Absolute Auto 0.8 K/mm3 (0.1-0.6); Monocytes Percent Auto 9.4 % (2.6-8.5); Neutrophils Absolute Auto 6.4 K/mm3 (1.3-6.7); Neutrophils Percent Auto 76.1 % (45.5-73.1); Platelet Count Result 240 k/mm3 (150-375); Red Blood Count 3.01 M/mm3 (4.6-6.20); White Blood Count 8.4 K/mm3 (4.5-10.0)
[2023-06-18 06:09] LABS: Alanine Aminotransferase 108 U/L (6-50); Albumin Level 2.3 g/dL (3.5-5.1); Alkaline Phosphatase 1032 U/L (38-126); Anion Gap 6 mmol/L (8-16); Aspartate Amino Transferase 141 U/L (17-59); Bilirubin,Total 26.5 mg/dL (0.2-1.3); Blood Urea Nitrogen 16 mg/dL (9-20); Carbon Dioxide 20 mmol/L (22-30); Chloride 110 mmol/L (98-107); Estimated CRCL calculation 56 ml/min; Estimated Glomerular Filt Rate > 60; Glucose 109 mg/dL (65-110); Potassium 3.4 mmol/L (3.4-5.0); Sodium 136 mmol/L (137-145)
[2023-06-18 07:16] LABS: INR 1.8; Prothrombin Time 21.7 Seconds (11.1-14.7)
[2023-06-18] MEDS: CHOLECALCIFEROL 1,000 UNITS TABLET 2000 UNITS PO (09:30)
[2023-06-18] MEDS: calcium polycarbophiL 625 MG TABLET 1250 MG PO (09:30)
[2023-06-18] MEDS: ENALAPRIL MALEATE 10 MG TABLET 20 MG PO (09:30)
[2023-06-18] MEDS: OPTI-GEN TAB 1 TABLET PO (09:30)
[2023-06-18] MEDS: polyethylene glycoL 3350 17 GM POWD.PACK PO (09:31)
[2023-06-18] MEDS: MAGNESIUM 13.5 MG TABLET (250 MG MAG GLUCONATE) PO (09:31)
[2023-06-18] MEDS: SODIUM CHLORIDE 0.9% IV 250 ML 30 ML IV CONT (11:00)
--- NOTE | 2023-06-18 11:12 | PC.NURSE ---
FFP infusion began per protocol, second nurse verification by Hannah Leonardo RN
--- NOTE | 2023-06-18 20:21 | PM.IMPN ---
Progress Note: A&P Assessment and Plan (1) Hepatitis: Code(s): K75.9 - Inflammatory liver disease, unspecified Status: Acute (2) Cough: Code(s): R05.9 - Cough, unspecified Status: Acute (3) Acute hepatitis: Onset Date: ~05/15/23 Code(s): B17.9 - Acute viral hepatitis, unspecified Status: Acute (4) Diarrhea: Qualifiers: Diarrhea type: unspecified type Qualified Code(s): R19.7 - Diarrhea, unspecified Code(s): R19.7 - Diarrhea, unspecified Status: Acute (5) Abdominal pain: Code(s): R10.9 - Unspecified abdominal pain Status: Acute (6) Irritable bowel syndrome with constipation: Code(s): K58.1 - Irritable bowel syndrome with constipation Status: Acute (7) Essential (primary) hypertension: Code(s): I10 - Essential (primary) hypertension Status: Chronic (8) Anemia: Qualifiers: Anemia type: unspecified type Qualified Code(s): D64.9 - Anemia, unspecified Code(s): D64.9 - Anemia, unspecified Status: Acute (9) Mixed hyperlipidemia: Code(s): E78.2 - Mixed hyperlipidemia Status: Acute (10) RSV (acute bronchiolitis due to respiratory syncytial virus): Code(s): J21.0 - Acute bronchiolitis due to respiratory syncytial virus Status: Acute (11) Jaundice: Code(s): R17 - Unspecified jaundice Status: Acute (12) Metastatic adenocarcinoma: Code(s): C79.9 - Secondary malignant neoplasm of unspecified site Status: Acute (13) Abdominal carcinomatosis: Onset Date: ~04/2023 Code(s): C76.2 - Malignant neoplasm of abdomen Status: Acute (14) Abnormal liver ultrasound: Code(s): R93.2 - Abnormal findings on diagnostic imaging of liver and biliary tract Status: Acute Plan Admit patient to medical unit under full inpatient status Patient diagnosed with respiratory syncytial virus causing bronchiolitis leading to cough and cold Patient undergoing require symptomatic treatment for his RSV infection Patient started on IV hydration in the ER which we will continue on the floor Strict input and output monitoring Patient had severely elevated total bilirubin of 28 on admission with direct bilirubin at 17.5 pointing towards hepatic source Bilirubin level remains between 24.9 and 28.5 Patient has mildly elevated LFTs as well which are being monitored closely MRCP ordered for further evaluation of hepatic biliary system MRCP findings consistent with high probability pancreatic adenocarcinoma with several liver mets and abdominal carcinomatosis GI spoke with the patient in detail about diagnosis, prognosis and staging workup Patient ordered liver biopsy/lymph node biopsy/paracentesis to get a tissue sample for diagnosis and staging Discussed with patient in detail regarding Hematology-Oncology referral and management options including hospice Patient taking time to discuss with family regarding treatment options We found hematology-Oncology service coverage hence I consulted Hematology-Oncology to evaluate the patient in the hospital Patient made his cousin is his power of ip technology transactions attorney Patient spoke with family and is leaning towards home with hospice at this point DC planning home with hospice versus home with outpatient Oncology follow-up once final issue is taking by patient and family in am Continue with oral Benadryl as needed for itchiness due to hyperbilirubinemia Patient made up his mind and wants to go under hospice care Care coordination making arrangements for patient's as he lives in a home situation without heating arrangements ? Patient seen and examined at bedside during my morning rounds ? Collaborated with patient's nurse at the bedside in detail and addressed all concerns ? Labs, electrolytes, radiology, investigations and test results reviewed ? Consult/Nursing/Ancilliary notes on the chart reviewed and appreciated ? Spoke with patient/
[2023-06-18] MEDS: SODIUM CHLORIDE 0.45% 1,000 ML 100 ML IV CONT (20:27)
[2023-06-18] MEDS: BENZONATATE 100 MG CAPSULE 200 MG PO (20:27)
[2023-06-19] VITALS (8 sets, daily range): BP systolic 101–106; BP diastolic 50–65; PULSE 69–85; RESP 16–20; TEMP 36.4–36.6; O2SAT 94
[2023-06-19 05:38] LABS: Basophils Absolute Auto 0.1 K/mm3 (0.0-0.1); Basophils Percent Auto 0.7 % (0.2-1.2); Eosinophils Absolute Auto 0.2 K/mm3 (0-0.3); Eosinophils Percent Auto 2.3 % (0-4.4); Hematocrit 28.2 % (42.0-52.0); Hemoglobin 9.9 g/dL (14.0-18.0); Immature Granulocyte Absolute 0.33 K/mm3 (0.00-0.031); Immature Granulocyte Percent A 3.5 % (0-0.5); Lymphocytes Percent Auto 6.3 % (18.3-44.2); Mean Corpuscular HGB Conc 35.1 g/dl (32-36); Mean Corpuscular Hemoglobin 32.8 pg (26-34); Mean Corpuscular Volume 93.4 fl (80-100); Mean Platelet Volume 11.2 fl (7.4-10.4); Monocytes Absolute Auto 0.8 K/mm3 (0.1-0.6); Monocytes Percent Auto 8.4 % (2.6-8.5); Neutrophils Absolute Auto 7.5 K/mm3 (1.3-6.7); Neutrophils Percent Auto 78.8 % (45.5-73.1); Platelet Count Result 238 k/mm3 (150-375); Red Blood Count 3.02 M/mm3 (4.6-6.20); Red Cell Distribution Width 21.2 % (11.5-14.5); White Blood Count 9.5 K/mm3 (4.5-10.0)
[2023-06-19 06:07] LABS: Alanine Aminotransferase 101 U/L (6-50); Albumin Level 2.4 g/dL (3.5-5.1); Alkaline Phosphatase 1062 U/L (38-126); Anion Gap 5 mmol/L (8-16); Aspartate Amino Transferase 139 U/L (17-59); Bilirubin,Total 26.3 mg/dL (0.2-1.3); Blood Urea Nitrogen 15 mg/dL (9-20); Carbon Dioxide 22 mmol/L (22-30); Chloride 109 mmol/L (98-107); Estimated CRCL calculation 56 ml/min; Estimated Glomerular Filt Rate > 60; Glucose 104 mg/dL (65-110); Potassium 3.3 mmol/L (3.4-5.0); Sodium 136 mmol/L (137-145)
[2023-06-19] MEDS: ENALAPRIL MALEATE 10 MG TABLET 20 MG PO (08:05)
[2023-06-19] MEDS: MAGNESIUM 13.5 MG TABLET (250 MG MAG GLUCONATE) PO (08:05)
[2023-06-19] MEDS: OPTI-GEN TAB 1 TABLET PO (08:05)
[2023-06-19] MEDS: CHOLECALCIFEROL 1,000 UNITS TABLET 2000 UNITS PO (08:05)
[2023-06-19] MEDS: calcium polycarbophiL 625 MG TABLET 1250 MG PO (08:05)
[2023-06-19] MEDS: polyethylene glycoL 3350 17 GM POWD.PACK PO (08:10)
[2023-06-19] MEDS: POTASSIUM CHLORIDE 20 MEQ ER TABLET 40 MEQ PO (09:33)
--- NOTE | 2023-06-19 13:47 | PCNWS ---
Weekly nutritional screen. Spoke with RN. Pt is not pursuing treatment for his liver cancer and elects to go home on hospice. Discharge soon. No nutrition interventions. Follow for weekly screen or consult for additional needs.
[2023-06-19 15:19] LABS: Alpha Fetoprotein Tumor Marker 2.9 ng/mL (<6.1)
--- NOTE | 2023-06-19 20:17 | PM.IMPN ---
Progress Note: A&P Assessment and Plan (1) Hepatitis: Code(s): K75.9 - Inflammatory liver disease, unspecified Status: Acute (2) Cough: Code(s): R05.9 - Cough, unspecified Status: Acute (3) Acute hepatitis: Onset Date: ~05/15/23 Code(s): B17.9 - Acute viral hepatitis, unspecified Status: Acute (4) Diarrhea: Qualifiers: Diarrhea type: unspecified type Qualified Code(s): R19.7 - Diarrhea, unspecified Code(s): R19.7 - Diarrhea, unspecified Status: Acute (5) Abdominal pain: Code(s): R10.9 - Unspecified abdominal pain Status: Acute (6) Irritable bowel syndrome with constipation: Code(s): K58.1 - Irritable bowel syndrome with constipation Status: Acute (7) Essential (primary) hypertension: Code(s): I10 - Essential (primary) hypertension Status: Chronic (8) Anemia: Qualifiers: Anemia type: unspecified type Qualified Code(s): D64.9 - Anemia, unspecified Code(s): D64.9 - Anemia, unspecified Status: Acute (9) Mixed hyperlipidemia: Code(s): E78.2 - Mixed hyperlipidemia Status: Acute (10) RSV (acute bronchiolitis due to respiratory syncytial virus): Code(s): J21.0 - Acute bronchiolitis due to respiratory syncytial virus Status: Acute (11) Jaundice: Code(s): R17 - Unspecified jaundice Status: Acute (12) Metastatic adenocarcinoma: Code(s): C79.9 - Secondary malignant neoplasm of unspecified site Status: Acute (13) Abdominal carcinomatosis: Onset Date: ~04/2023 Code(s): C76.2 - Malignant neoplasm of abdomen Status: Acute (14) Abnormal liver ultrasound: Code(s): R93.2 - Abnormal findings on diagnostic imaging of liver and biliary tract Status: Acute Plan Admit patient to medical unit under full inpatient status Patient diagnosed with respiratory syncytial virus causing bronchiolitis leading to cough and cold Patient undergoing require symptomatic treatment for his RSV infection Patient started on IV hydration in the ER which we will continue on the floor Strict input and output monitoring Patient had severely elevated total bilirubin of 28 on admission with direct bilirubin at 17.5 pointing towards hepatic source Bilirubin level remains between 24.9 and 28.5 Patient has mildly elevated LFTs as well which are being monitored closely MRCP ordered for further evaluation of hepatic biliary system MRCP findings consistent with high probability pancreatic adenocarcinoma with several liver mets and abdominal carcinomatosis GI spoke with the patient in detail about diagnosis, prognosis and staging workup Patient ordered liver biopsy/lymph node biopsy/paracentesis to get a tissue sample for diagnosis and staging Discussed with patient in detail regarding Hematology-Oncology referral and management options including hospice Patient taking time to discuss with family regarding treatment options We found hematology-Oncology service coverage hence I consulted Hematology-Oncology to evaluate the patient in the hospital Patient made his cousin his power of banking attorney Patient spoke with family and is leaning towards home with hospice at this point DC planning home with hospice versus home with outpatient Oncology follow-up once final issue is taking by patient and family in am Continue with oral Benadryl as needed for itchiness due to hyperbilirubinemia Patient made up his mind and wants to go under hospice care Care coordination making arrangements for patient's as he lives in a home situation without heating arrangements Awaiting approval from the transferring facility to go with hospice care Continue to monitor CMP on a daily basis ? Patient seen and examined at bedside during my morning rounds ? Collaborated with patient's nurse at the bedside in detail and addressed all concerns ? Labs, electrolytes, radiology, investigations and test
[2023-06-20 05:55] VITALS: BP 103/66; PULSE 77; RESP 20; TEMP 36.7; O2SAT 94
[2023-06-20 06:15] LABS: Alanine Aminotransferase 96 U/L (6-50); Albumin Level 2.4 g/dL (3.5-5.1); Alkaline Phosphatase 1075 U/L (38-126); Anion Gap 6 mmol/L (8-16); Aspartate Amino Transferase 130 U/L (17-59); Blood Urea Nitrogen 17 mg/dL (9-20); Calcium 8.2 mg/dL (8.4-10.2); Carbon Dioxide 18 mmol/L (22-30); Chloride 112 mmol/L (98-107); Estimated CRCL calculation 56 ml/min; Estimated Glomerular Filt Rate > 60; Glucose 102 mg/dL (65-110); Potassium 3.6 mmol/L (3.4-5.0); Sodium 136 mmol/L (137-145)
[2023-06-20 06:30] LABS: Bilirubin,Total 27.4 mg/dL (0.2-1.3)
[2023-06-20] MEDS: OPTI-GEN TAB 1 TABLET PO (08:59)
[2023-06-20] MEDS: MAGNESIUM 13.5 MG TABLET (250 MG MAG GLUCONATE) PO (08:59)
[2023-06-20] MEDS: calcium polycarbophiL 625 MG TABLET 1250 MG PO (08:59)
[2023-06-20] MEDS: ENALAPRIL MALEATE 10 MG TABLET 20 MG PO (08:59)
[2023-06-20] MEDS: CHOLECALCIFEROL 1,000 UNITS TABLET 2000 UNITS PO (09:00)
[2023-06-20 14:00] VITALS: BP 91/70; PULSE 74; RESP 16; TEMP 36.4; O2SAT 95
--- NOTE | 2023-06-20 16:11 | PM.DS ---
DS: Admitting Diagnosis Discharge Date 06/20/2023: Admitting Diagnosis Respiratory syncytial virus infection Severe hyperbilirubinemia Abnormal liver enzymes DS: Discharge Diagnosis Discharge Diagnosis (1) Jaundice: Code(s): R17 - Unspecified jaundice Status: Acute (2) Metastatic adenocarcinoma: Code(s): C79.9 - Secondary malignant neoplasm of unspecified site Status: Acute (3) Abdominal carcinomatosis: Onset Date: ~04/2023 Code(s): C76.2 - Malignant neoplasm of abdomen Status: Acute (4) Abnormal liver ultrasound: Code(s): R93.2 - Abnormal findings on diagnostic imaging of liver and biliary tract Status: Acute (5) RSV (acute bronchiolitis due to respiratory syncytial virus): Code(s): J21.0 - Acute bronchiolitis due to respiratory syncytial virus Status: Acute (6) Acute hepatitis: Onset Date: ~05/15/23 Code(s): B17.9 - Acute viral hepatitis, unspecified Status: Acute (7) Irritable bowel syndrome with constipation: Code(s): K58.1 - Irritable bowel syndrome with constipation Status: Acute (8) Overweight (BMI 25.0-29.9): Code(s): E66.3 - Overweight Status: Acute (9) Essential (primary) hypertension: Code(s): I10 - Essential (primary) hypertension Status: Chronic (10) Anemia: Qualifiers: Anemia type: unspecified type Qualified Code(s): D64.9 - Anemia, unspecified Code(s): D64.9 - Anemia, unspecified Status: Acute (11) Mixed hyperlipidemia: Code(s): E78.2 - Mixed hyperlipidemia Status: Acute (12) Abnormal fasting glucose: Code(s): R73.01 - Impaired fasting glucose Status: Acute (13) Vitamin D deficiency, unspecified: Code(s): E55.9 - Vitamin D deficiency, unspecified Status: Acute DS: Summary Hospital Course Reason for hospitalization: Patient came to the ER for evaluation with the cough, weakness and worsening jaundice Hospital Course: H&P: HPI History of Present Illness Date/Time: 06/14/23? 17:04 Chief Complaint: Patient came to the ER for evaluation with the cough, weakness and worsening jaundice Narrative: He is a very pleasant 87 years old male who is complaining of dark urine and jaundice for the last week and a half. He went to the PCP and was told he has liver issues.? He is diagnosed with hepatitis and has abdominal ultrasound which revealed gallstones and biliary sludge.? Ultrasound also showed multiple liver lesions.? Patient was suppose to have his MRI couple days ago but missed the appointment because he was very weak and tired.? He came to the ER for evaluation for worsening symptoms.? Workup was done which confirmed hyperbilirubinemia as well as RSV infection causing his cough and cold.? He was also point to be dehydrated and started on IV fluids. He is being admitted for medical management, symptomatic care and GI evaluation for further workup for his jaundice and liver issues. HOSPITAL COURSE ... Date of Admission - 06/19/2023: Plan Admit patient to medical unit under full inpatient status Patient diagnosed with respiratory syncytial virus causing bronchiolitis leading to cough and cold Patient undergoing require symptomatic treatment for his RSV infection Patient started on IV hydration in the ER which we will continue on the floor Strict input and output monitoring Patient had severely elevated total bilirubin of 28 on admission with direct bilirubin at 17.5 pointing towards hepatic source Bilirubin level remains between 24.9 and 28.5 Patient has mildly elevated LFTs as well which are being monitored closely MRCP ordered for further evaluation of hepatic biliary system MRCP findings consistent with high probability pancreatic adenocarcinoma with several liver mets and abdominal carcinomatosis GI spoke with the patient in detail about diagnosis, prognosis and staging workup Patient ordered liver biopsy/lymph nod
--- NOTE | 2023-06-20 18:32 | PC.NURSE ---
Call made to [facility]. Facility states that they cannot take him today. I informed them that our congregational care pastor spoke with a Lynnette and they told me that person is just a collections representative and cannot make admission decisions. Facility asked if we could keep him overnight and try to get approval in the morning. Charge nurse made aware. made aware. central office operator supervisor made aware and will have [facility] congregational care pastor contact this nurse. states that we have waited 4 days and he would like him discharged today. He does not want him to wait one more day. This nurse will make necessary calls/implements to get patient discharged if possible.
[2023-06-20 18:46] LABS: SARS-CoV-2 RNA PCR Negative (Negative)
--- NOTE | 2023-06-20 19:29 | PC.NURSE ---
Call from [facility] neonatal intensive care nurse. Pt unable to leave tonight. Family and pt made aware.
[2023-06-20 21:43] VITALS: BP 75/49; PULSE 96; RESP 18; TEMP 37.4; O2SAT 96
[2023-06-20] MEDS: ALBUMIN HUMAN 5% 25 GM/500 ML BTL IV CONT (23:33)
[2023-06-21 05:52] VITALS: BP 91/62; PULSE 97; RESP 14; TEMP 36.7; O2SAT 97
[2023-06-21 06:25] LABS: Alanine Aminotransferase 85 U/L (6-50); Albumin Level 2.5 g/dL (3.5-5.1); Alkaline Phosphatase 995 U/L (38-126); Anion Gap 7 mmol/L (8-16); Aspartate Amino Transferase 118 U/L (17-59); Blood Urea Nitrogen 19 mg/dL (9-20); Calcium 8.5 mg/dL (8.4-10.2); Carbon Dioxide 20 mmol/L (22-30); Chloride 110 mmol/L (98-107); Estimated CRCL calculation 51 ml/min; Estimated Glomerular Filt Rate > 60; Glucose 104 mg/dL (65-110); Potassium 3.5 mmol/L (3.4-5.0); Sodium 137 mmol/L (137-145)
[2023-06-21 06:32] LABS: Bilirubin,Total 28.2 mg/dL (0.2-1.3)
[2023-06-21] MEDS: calcium polycarbophiL 625 MG TABLET 1250 MG PO (08:28)
[2023-06-21] MEDS: MAGNESIUM 13.5 MG TABLET (250 MG MAG GLUCONATE) PO (08:28)
[2023-06-21] MEDS: CHOLECALCIFEROL 1,000 UNITS TABLET 2000 UNITS PO (08:28)
[2023-06-21] MEDS: OPTI-GEN TAB 1 TABLET PO (08:28)
[2023-06-21] MEDS: polyethylene glycoL 3350 17 GM POWD.PACK PO (08:28)
--- NOTE | 2023-06-21 11:22 | PM.IMPN ---
Progress Note: A&P Assessment and Plan (1) Jaundice: Code(s): R17 - Unspecified jaundice Status: Acute Assessment and Plan: Due to pancretic mass with liver, peritoneal, and retroperitoneal metastases He wishes comfort care only Add promethazine IV prn for pruritus and triamcinolone topical for rash Due to transition to [facility] as [place] payor and anticipated hospice admission upon discharge to [place], his discharge was delayed 06/21/2023 Discussed with care coordination (2) Metastatic adenocarcinoma: Code(s): C79.9 - Secondary malignant neoplasm of unspecified site Status: Acute (3) Abdominal carcinomatosis: Onset Date: ~04/2023 Code(s): C76.2 - Malignant neoplasm of abdomen Status: Acute (4) Abnormal liver ultrasound: Code(s): R93.2 - Abnormal findings on diagnostic imaging of liver and biliary tract Status: Acute (5) RSV (acute bronchiolitis due to respiratory syncytial virus): Code(s): J21.0 - Acute bronchiolitis due to respiratory syncytial virus Status: Acute (6) Acute hepatitis: Onset Date: ~05/15/23 Code(s): B17.9 - Acute viral hepatitis, unspecified Status: Acute (7) Irritable bowel syndrome with constipation: Code(s): K58.1 - Irritable bowel syndrome with constipation Status: Acute (8) Overweight (BMI 25.0-29.9): Code(s): E66.3 - Overweight Status: Acute (9) Essential (primary) hypertension: Code(s): I10 - Essential (primary) hypertension Status: Chronic (10) Anemia: Qualifiers: Anemia type: unspecified type Qualified Code(s): D64.9 - Anemia, unspecified Code(s): D64.9 - Anemia, unspecified Status: Acute (11) Mixed hyperlipidemia: Code(s): E78.2 - Mixed hyperlipidemia Status: Acute (12) Abnormal fasting glucose: Code(s): R73.01 - Impaired fasting glucose Status: Acute (13) Vitamin D deficiency, unspecified: Code(s): E55.9 - Vitamin D deficiency, unspecified Status: Acute Subjective Date/time seen: 06/21/23 11:22 Interval history: Tolerated breakfast. C/o fatigue, generalized weakness, and itching. Denied pain in chest, abdomen, back, head, extremities, Denied sob. Denied issues with GI/ function. Exam Narrative: SKIN: Erythematous macular rash left arm, forearm HEENT: PERRL, SCLERAE ICTERIC, pharyngeal mucosa pink and intact NECK: No JVD CHEST: Clear to auscultation. Normal effort. HEART: NL S1/S2, regular, no murmur ABDOMEN: BS+, PROTUBERANT BUTsoft, nontender, no mass, no bruits EXTREMITIES: No cyanosis, edema, or clubbing NEUROLOGIC: CN intact and symmetric to inspection. MUSCULOSKELETAL: Tone and strength symmetric. PSYCH: Alert. Oriented to person, place, and time (INCLUDING DATE). Objective Data Vital Signs Vital Signs: Vital Signs - 24 hr 06/20/23 14:00 06/20/23 19:53 06/20/23 21:43 Temperature 97.5 F L 99.3 F Pulse Rate 74 96 Respiratory Rate 16 18 Blood Pressure 91/70 L 75/49 L Pulse Oximetry 95 96 Oxygen Delivery Room Air 06/21/23 05:52 Temperature 98.1 F Pulse Rate 97 Respiratory Rate 14 Blood Pressure 91/62 L Pulse Oximetry 97 Oxygen Delivery Intake/Output Intake/Output: Intake & Output 06/18/23 06/19/23 06/20/23 06/21/23 23:59 23:59 23:59 23:59 Intake Total 2668 700 1030 400 Output Total 1002 0 Balance 9308 396 5317 400 Meds/Results Medications: Active Medications Generic Name Dose Route Start Last Admin Trade Name Freq PRN Reason Stop Dose Admin Al Hydrox/Mg Hydrox/Simethicone 30 ml 06/14/23 17:16 Mag Hydrox/Al Hydrox/Simeth 30 Ml Udc PO QID PRN Dyspepsia Benzonatate 200 mg 06/14/23 17:21 06/18/23 20:27 Benzonatate 100 Mg Capsule PO 200 mg TID PRN Administration cough Calcium Polycarbophil 1,250 mg 06/15/23 09:00 06/21/23 08:28 Calcium Polycarbophil 625 Mg Tablet PO 1,250 mg DAILY MERISSA
[2023-06-21 14:00] VITALS: BP 106/64; PULSE 74; RESP 20; TEMP 36.5; O2SAT 97
[2023-06-21] MEDS: TRIAMCINOLONE ACET 0.1% CREAM 15 GM TUBE 1 APPLIC TOPICAL (20:34)
[2023-06-21 22:09] VITALS: BP 114/73; PULSE 63; RESP 18; TEMP 36.8; O2SAT 97
[2023-06-22] MEDS: calcium polycarbophiL 625 MG TABLET 1250 MG PO (08:52)
[2023-06-22] MEDS: polyethylene glycoL 3350 17 GM POWD.PACK PO (08:52)
[2023-06-22] MEDS: TRIAMCINOLONE ACET 0.1% CREAM 15 GM TUBE 1 APPLIC TOPICAL ×2 (08:52→20:17)
[2023-06-22 13:57] VITALS: BP 96/58; PULSE 74; RESP 16; TEMP 36.4; O2SAT 96
--- NOTE | 2023-06-22 14:06 | PM.IMPN ---
Progress Note: A&P Assessment and Plan (1) Jaundice: Code(s): R17 - Unspecified jaundice Status: Acute Assessment and Plan: Due to pancretic mass with liver, peritoneal, and retroperitoneal metastases He wishes comfort care only Add promethazine IV prn for pruritus and triamcinolone topical for rash Due to transition to [facility] as [place] payor and anticipated hospice admission upon discharge to [place], his discharge was delayed 06/21/2023 Discussed with care coordination (2) Metastatic adenocarcinoma: Code(s): C79.9 - Secondary malignant neoplasm of unspecified site Status: Acute (3) Abdominal carcinomatosis: Onset Date: ~04/2023 Code(s): C76.2 - Malignant neoplasm of abdomen Status: Acute (4) Abnormal liver ultrasound: Code(s): R93.2 - Abnormal findings on diagnostic imaging of liver and biliary tract Status: Acute (5) RSV (acute bronchiolitis due to respiratory syncytial virus): Code(s): J21.0 - Acute bronchiolitis due to respiratory syncytial virus Status: Acute (6) Acute hepatitis: Onset Date: ~05/15/23 Code(s): B17.9 - Acute viral hepatitis, unspecified Status: Acute (7) Irritable bowel syndrome with constipation: Code(s): K58.1 - Irritable bowel syndrome with constipation Status: Acute (8) Overweight (BMI 25.0-29.9): Code(s): E66.3 - Overweight Status: Acute (9) Essential (primary) hypertension: Code(s): I10 - Essential (primary) hypertension Status: Chronic (10) Anemia: Qualifiers: Anemia type: unspecified type Qualified Code(s): D64.9 - Anemia, unspecified Code(s): D64.9 - Anemia, unspecified Status: Acute (11) Mixed hyperlipidemia: Code(s): E78.2 - Mixed hyperlipidemia Status: Acute (12) Abnormal fasting glucose: Code(s): R73.01 - Impaired fasting glucose Status: Acute (13) Vitamin D deficiency, unspecified: Code(s): E55.9 - Vitamin D deficiency, unspecified Status: Acute Subjective Date/time seen: 06/22/23 14:06 Interval history: Tolerated breakfast. C/o fatigue, generalized weakness, and itching. Denied pain in chest, abdomen, back, head, extremities, Denied sob. Denied issues with GI/ function. On comfort care Review of Systems Review of Systems: 14 systems were reviewed with pertinent positives and negatives per HPI. Except as documented in the HPI/progress notes, all other systems were reviewed and are negative. All systems reviewed & are unremarkable except as noted in HPI and below Exam Narrative: SKIN: Erythematous macular rash left arm, forearm HEENT: PERRL, SCLERAE ICTERIC, pharyngeal mucosa pink and intact NECK: No JVD CHEST: Clear to auscultation. Normal effort. HEART: NL S1/S2, regular, no murmur ABDOMEN: BS+, PROTUBERANT BUTsoft, nontender, no mass, no bruits EXTREMITIES: No cyanosis, edema, or clubbing NEUROLOGIC: CN intact and symmetric to inspection. MUSCULOSKELETAL: Tone and strength symmetric. PSYCH: Alert. Oriented to person, place, and time (INCLUDING DATE). Objective Data Vital Signs Vital Signs: Vital Signs - 24 hr 06/21/23 22:09 06/22/23 08:50 06/22/23 13:57 Temperature 98.2 F 97.5 F L Pulse Rate 63 74 Respiratory Rate 18 16 Blood Pressure 114/73 96/58 L Pulse Oximetry 97 96 Oxygen Delivery Room Air Intake/Output Intake/Output: Intake & Output 06/19/23 06/20/23 06/21/23 06/22/23 23:59 23:59 23:59 23:59 Intake Total 700 0669 124 8463 Output Total 50 600 Balance 700 1030 900 430 Meds/Results Medications: Active Medications Generic Name Dose Route Start Last Admin Trade Name Freq PRN Reason Stop Dose Admin Al Hydrox/Mg Hydrox/Simethicone 30 ml 06/14/23 17:16 Mag Hydrox/Al Hydrox/Simeth 30 Ml Udc PO QID PRN Dyspepsia Benzonatate 200 mg 06/14/23 17:21 06/18/23 20:27 Benzonatate 100 Mg Capsule PO 200
[2023-06-22] MEDS: diphenhydrAMINE HCl CAP 25 MG CAPSULE PO (18:00)
[2023-06-22 20:00] VITALS: BP 103/72; PULSE 78; RESP 16; TEMP 36.9; O2SAT 100
[2023-06-23 08:00] VITALS: BP 93/57; PULSE 70; RESP 16; TEMP 36.4; O2SAT 95
[2023-06-23] MEDS: calcium polycarbophiL 625 MG TABLET 1250 MG PO (08:02)
[2023-06-23] MEDS: TRIAMCINOLONE ACET 0.1% CREAM 15 GM TUBE 1 APPLIC TOPICAL ×2 (08:02→20:45)
[2023-06-23] MEDS: polyethylene glycoL 3350 17 GM POWD.PACK PO (08:02)
[2023-06-23] MEDS: diphenhydrAMINE HCl CAP 25 MG CAPSULE PO ×3 (08:06→20:48)
--- NOTE | 2023-06-23 15:03 | PM.IMPN ---
Progress Note: A&P Assessment and Plan (1) Jaundice: Code(s): R17 - Unspecified jaundice Status: Acute Assessment and Plan: Due to pancretic mass with liver, peritoneal, and retroperitoneal metastases He wishes comfort care only Add promethazine IV prn for pruritus and triamcinolone topical for rash Due to transition to [facility] as [place] payor and anticipated hospice admission upon discharge to [place], his discharge was delayed 06/21/2023 Discussed with care coordination awaiting hospice discharge (2) Metastatic adenocarcinoma: Code(s): C79.9 - Secondary malignant neoplasm of unspecified site Status: Acute (3) Abdominal carcinomatosis: Onset Date: ~04/2023 Code(s): C76.2 - Malignant neoplasm of abdomen Status: Acute (4) Abnormal liver ultrasound: Code(s): R93.2 - Abnormal findings on diagnostic imaging of liver and biliary tract Status: Acute (5) RSV (acute bronchiolitis due to respiratory syncytial virus): Code(s): J21.0 - Acute bronchiolitis due to respiratory syncytial virus Status: Acute (6) Acute hepatitis: Onset Date: ~05/15/23 Code(s): B17.9 - Acute viral hepatitis, unspecified Status: Acute (7) Irritable bowel syndrome with constipation: Code(s): K58.1 - Irritable bowel syndrome with constipation Status: Acute (8) Overweight (BMI 25.0-29.9): Code(s): E66.3 - Overweight Status: Acute (9) Essential (primary) hypertension: Code(s): I10 - Essential (primary) hypertension Status: Chronic (10) Anemia: Qualifiers: Anemia type: unspecified type Qualified Code(s): D64.9 - Anemia, unspecified Code(s): D64.9 - Anemia, unspecified Status: Acute (11) Mixed hyperlipidemia: Code(s): E78.2 - Mixed hyperlipidemia Status: Acute (12) Abnormal fasting glucose: Code(s): R73.01 - Impaired fasting glucose Status: Acute (13) Vitamin D deficiency, unspecified: Code(s): E55.9 - Vitamin D deficiency, unspecified Status: Acute Subjective Date/time seen: 06/23/23 15:03 Interval history: Tolerated breakfast. C/o fatigue, generalized weakness, and itching. Denied pain in chest, abdomen, back, head, extremities, Denied sob. Denied issues with GI/ function. Awaiting hospice discharge Review of Systems Review of Systems: 14 systems were reviewed with pertinent positives and negatives per HPI. Except as documented in the HPI/progress notes, all other systems were reviewed and are negative. All systems reviewed & are unremarkable except as noted in HPI and below Exam Narrative: SKIN: Erythematous macular rash left arm, forearm HEENT: PERRL, SCLERAE ICTERIC, pharyngeal mucosa pink and intact NECK: No JVD CHEST: Clear to auscultation. Normal effort. HEART: NL S1/S2, regular, no murmur ABDOMEN: BS+, PROTUBERANT BUTsoft, nontender, no mass, no bruits EXTREMITIES: No cyanosis, edema, or clubbing NEUROLOGIC: CN intact and symmetric to inspection. MUSCULOSKELETAL: Tone and strength symmetric. PSYCH: Alert. Oriented to person, place, and time (INCLUDING DATE). Objective Data Vital Signs Vital Signs: Vital Signs - 24 hr 06/22/23 20:00 06/23/23 08:00 06/23/23 08:00 Temperature 98.5 F 97.6 F Pulse Rate 78 70 Respiratory Rate 16 16 Blood Pressure 103/72 93/57 L Pulse Oximetry 100 95 Oxygen Delivery Room Air Intake/Output Intake/Output: Intake & Output 06/20/23 06/21/23 06/22/23 06/23/23 23:59 23:59 23:59 23:59 Intake Total 6228 279 3961 590 Output Total 50 600 Balance 1030 900 910 590 Meds/Results Medications: Active Medications Generic Name Dose Route Start Last Admin Trade Name Freq PRN Reason Stop Dose Admin Al Hydrox/Mg Hydrox/Simethicone 30 ml 06/14/23 17:16 Mag Hydrox/Al Hydrox/Simeth 30 Ml Udc PO QID PRN Dyspepsia Benzonatate 200 mg 06/14/23 17:21 06/18/23 20:27
[2023-06-23 22:11] VITALS: BP 115/62; PULSE 85; RESP 18; TEMP 36.8; O2SAT 93
[2023-06-24] MEDS: polyethylene glycoL 3350 17 GM POWD.PACK PO (09:15)
[2023-06-24] MEDS: calcium polycarbophiL 625 MG TABLET 1250 MG PO (09:15)
[2023-06-24] MEDS: TRIAMCINOLONE ACET 0.1% CREAM 15 GM TUBE 1 APPLIC TOPICAL (09:16)
[2023-06-24] MEDS: diphenhydrAMINE HCl CAP 25 MG CAPSULE PO ×2 (09:19→20:01)
--- NOTE | 2023-06-24 11:29 | PM.IMPN ---
Progress Note: A&P Assessment and Plan (1) Jaundice: Code(s): R17 - Unspecified jaundice Status: Acute Assessment and Plan: Due to pancretic mass with liver, peritoneal, and retroperitoneal metastases He wishes comfort care only Add promethazine IV prn for pruritus and triamcinolone topical for rash Due to transition to [facility] as [place] payor and anticipated hospice admission upon discharge to [place], his discharge was delayed 06/21/2023 Discussed with care coordination awaiting hospice discharge (2) Metastatic adenocarcinoma: Code(s): C79.9 - Secondary malignant neoplasm of unspecified site Status: Acute (3) Abdominal carcinomatosis: Onset Date: ~04/2023 Code(s): C76.2 - Malignant neoplasm of abdomen Status: Acute (4) Abnormal liver ultrasound: Code(s): R93.2 - Abnormal findings on diagnostic imaging of liver and biliary tract Status: Acute (5) RSV (acute bronchiolitis due to respiratory syncytial virus): Code(s): J21.0 - Acute bronchiolitis due to respiratory syncytial virus Status: Acute (6) Acute hepatitis: Onset Date: ~05/15/23 Code(s): B17.9 - Acute viral hepatitis, unspecified Status: Acute (7) Irritable bowel syndrome with constipation: Code(s): K58.1 - Irritable bowel syndrome with constipation Status: Acute (8) Essential (primary) hypertension: Code(s): I10 - Essential (primary) hypertension Status: Chronic (9) Anemia: Qualifiers: Anemia type: unspecified type Qualified Code(s): D64.9 - Anemia, unspecified Code(s): D64.9 - Anemia, unspecified Status: Acute (10) Mixed hyperlipidemia: Code(s): E78.2 - Mixed hyperlipidemia Status: Acute (11) Abnormal fasting glucose: Code(s): R73.01 - Impaired fasting glucose Status: Acute (12) Vitamin D deficiency, unspecified: Code(s): E55.9 - Vitamin D deficiency, unspecified Status: Acute Subjective Date/time seen: 06/24/23 11:29 Interval history: 87-year-old male with metastatic adenocarcinoma here for weakness and worsening jaundice. Assuming care. Chart reviewed. No problems overnight. Eating well but has decreased appetite overall. Exam Narrative: AF 98.3 115/62 85 18 93% ra Gen - NARD Chest - distant, clear BS CV - RRR S1/S2 Abd - Soft, protuberant, +BS Ext - trace pedal edema Psych - Nml mood and affect Skin -jaundice Objective Data Vital Signs Vital Signs: Vital Signs - 24 hr 06/23/23 20:00 06/23/23 22:11 Temperature 98.3 F Pulse Rate 85 Respiratory Rate 18 Blood Pressure 115/62 Pulse Oximetry 93 Oxygen Delivery Room Air Intake/Output Intake/Output: Intake & Output 06/21/23 06/22/23 06/23/23 06/24/23 23:59 23:59 23:59 23:59 Intake Total 950 1510 1370 340 Output Total 50 600 Balance 782 587 5741 340 Meds/Results Medications: Active Medications Generic Name Dose Route Start Last Admin Trade Name Freq PRN Reason Stop Dose Admin Al Hydrox/Mg Hydrox/Simethicone 30 ml 06/14/23 17:16 Mag Hydrox/Al Hydrox/Simeth 30 Ml Udc PO QID PRN Dyspepsia Benzonatate 200 mg 06/14/23 17:21 06/18/23 20:27 Benzonatate 100 Mg Capsule PO 200 mg TID PRN Administration cough Calcium Polycarbophil 1,250 mg 06/15/23 09:00 06/24/23 09:15 Calcium Polycarbophil 625 Mg Tablet PO 1,250 mg DAILY MERISSA Administration Diphenhydramine HCl 25 mg 06/22/23 17:28 06/24/23 09:19 Diphenhydramine Hcl Cap 25 Mg Capsule PO 25 mg TID PRN Administration Itching Polyethylene Glycol 17 gm 06/15/23 09:00 06/24/23 09:15 Polyethylene Glycol 3350 17 Gm Powd.Pack PO 17 gm DAILY MERISSA Administration Promethazine HCl 12.5 mg 06/21/23 11:30 Promethazine Hcl 25 Mg/Ml Ampul IV PUSH Q4H PRN Nausea And Vomiting Triamcinolone Acetonide 1 applic 06/21/23 21:00 06/24/23 09:16 Triamcinol
[2023-06-24 14:00] VITALS: BP 98/55; PULSE 70; RESP 16; TEMP 36.8; O2SAT 98
[2023-06-24] MEDS: TRIAMCINOLONE ACET 0.1% CREAM 80 GM TUBE 1 APPLIC TOPICAL (20:01)
[2023-06-24 20:04] VITALS: BP 115/68; PULSE 72; RESP 18; TEMP 36.6; O2SAT 94
[2023-06-25] MEDS: polyethylene glycoL 3350 17 GM POWD.PACK PO (08:29)
[2023-06-25] MEDS: calcium polycarbophiL 625 MG TABLET 1250 MG PO (08:29)
[2023-06-25] MEDS: diphenhydrAMINE HCl CAP 25 MG CAPSULE PO (08:29)
[2023-06-25] MEDS: TRIAMCINOLONE ACET 0.1% CREAM 80 GM TUBE 1 APPLIC TOPICAL (08:29)
[2023-06-25 14:35] VITALS: BP 99/58; PULSE 65; RESP 18; TEMP 36.4; O2SAT 97
--- NOTE | 2023-06-25 15:27 | PM.DS ---
DS: Admitting Diagnosis Discharge Date 06/25/22 Admitting Diagnosis Weakness DS: Discharge Diagnosis Discharge Diagnosis (1) Jaundice: Code(s): R17 - Unspecified jaundice Status: Acute (2) Metastatic adenocarcinoma: Code(s): C79.9 - Secondary malignant neoplasm of unspecified site Status: Acute (3) Abdominal carcinomatosis: Onset Date: ~04/2023 Code(s): C76.2 - Malignant neoplasm of abdomen Status: Acute (4) Abnormal liver ultrasound: Code(s): R93.2 - Abnormal findings on diagnostic imaging of liver and biliary tract Status: Acute (5) RSV (acute bronchiolitis due to respiratory syncytial virus): Code(s): J21.0 - Acute bronchiolitis due to respiratory syncytial virus Status: Acute (6) Acute hepatitis: Onset Date: ~05/15/23 Code(s): B17.9 - Acute viral hepatitis, unspecified Status: Acute (7) Irritable bowel syndrome with constipation: Code(s): K58.1 - Irritable bowel syndrome with constipation Status: Acute (8) Essential (primary) hypertension: Code(s): I10 - Essential (primary) hypertension Status: Chronic (9) Anemia: Qualifiers: Anemia type: unspecified type Qualified Code(s): D64.9 - Anemia, unspecified Code(s): D64.9 - Anemia, unspecified Status: Acute (10) Mixed hyperlipidemia: Code(s): E78.2 - Mixed hyperlipidemia Status: Acute (11) Abnormal fasting glucose: Code(s): R73.01 - Impaired fasting glucose Status: Acute (12) Vitamin D deficiency, unspecified: Code(s): E55.9 - Vitamin D deficiency, unspecified Status: Acute DS: Summary Hospital Course Reason for hospitalization: 87-year-old male with metastatic adenocarcinoma here for weakness and worsening jaundice. Please see H&P for details. Hospital Course: Patient presents with weakness, cough and worsening jaundice. He did test positive for RSV. 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 Also had liver masses, lung nodules and moderate volume of ascites with peritoneal carcinomatosis and periportal lymphadenopathy. He also had bone marrow signal intensity suspicious for metastatic disease. Please see report for further details. 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 Paracentesis fluid also revealed metastatic adenocarcinoma. Oncology was consulted. Palliative chemotherapy was recommended. Patient was not interested having chemotherapy and has decided on comfort measures. Arrangements are made and patient was discharged to hospice care. Status at Discharge Cognitive/behavioral status at discharge: stable Time Spent with Patient Time attestation: Total time spent providing and/or coordinating discharge services: 34 minutes Time spent: Greater than 30 minutes Exam Narrative: AF 97.5 99/58 65 18 97% ra Gen - NARD Chest - rt base crackles o/w clear CV - RRR S1/S2 Abd - Soft, protuberant, +BS Ext - no pedal edema Psych - Nml mood and affect Skin -jaundice DS: Data Data Completed and Pending Completed studies during hospitalization: Pending at discharge 06/16/23 16:20 Surgical [PTH] Routine Pending studies at discharge: Pending at discharge 06/16/23 12:35 Cytology [PTH] Routine Discharge Plan Discharge Attending physician on discharge: Vince Ramos Consulting providers: Ambrosio Rivera; Rivas Dubon Discharging Clinician: Vince Ramos Anticipated Discharge Date/Time: 06/25/23 15:34 Patient Disposition: Hospice - Medical Facility Activity: as tolerated Diet: regular Discharge Instructions: Hospice to follow at facility Stand Alone Forms: General Discharge Information Follow-up/Referrals: Mandy Alexandre
[2023-06-25 17:00] LABS: SARS-CoV-2 RNA PCR Negative (Negative)
[2023-06-25] MEDS: ONDANSETRON HCL ODT 4 MG TABLET PO (19:04)
== END 2023-06-25 19:36 | disposition hospice, inpatient (51) | DRG 436 ==
LOC: ANHED 23:13 → ANH3MED 23:52
PROVIDERS: Family Medicine; Internal Medicine Gastroenterology; Admitting Provider Internal Medicine; Emergency Provider Emergency Medicine; PCP Family Medicine; Visit Provider Internal Medicine
DX: C25.9 Malignant neoplasm of pancreas, unspecified (principal); C78.00 Secondary malignant neoplasm of unspecified lung; J21.0 Acute bronchiolitis due to respiratory syncytial virus; C78.7 Secondary malignant neoplasm of liver and intrahepatic bile duct; C78.6 Secondary malignant neoplasm of retroperitoneum and peritoneum; D64.9 Anemia, unspecified; I10 Essential (primary) hypertension; E78.2 Mixed hyperlipidemia; K80.20 Calculus of gallbladder without cholecystitis without obstruction; K57.30 Diverticulosis of large intestine without perforation or abscess without bleeding; K58.1 Irritable bowel syndrome with constipation; Z20.822 Contact with and (suspected) exposure to COVID-19; Z11.52 Encounter for screening for COVID-19; Z86.010 Personal history of colon polyps; Z51.5 Encounter for palliative care
CPT/HCPCS: 36415; 36430; 47000; 49083; 71045; 74183; 76376; 76942; 80053; 81001; 82105; 82248; 82977; 83605; 83735; 84100; 85025; 85610; 86301; 86900; 86901; 87040; 87635; 87637; 88104; 88108; 88305; 88307; 96360; 99285; A9270; A9577; J7030; J7050; P9017; P9045